=== PATIENT | female | born 1955 | race Caucasian/White ===

== ENCOUNTER 2024-10-29 22:24 | Emergency (ER) | payer OTHER ==
--- OUTSIDE RECORDS SUMMARY | 2024-10-29 22:34 | XMS REPORT | Continuity of Care Document ---
Author Name Unknown Address [address] [facility] [place] [address] [facility] Address [address] [facility] [place] [address] Care Team Providers Care Vault Clerk Name Role Phone NONE, NONE Primary Care Physician Unavailab LORRAINE Samuel Attending Clinician Unavailab JOELLEN Gonzalez Attending Clinician Unavailable JOELLEN SANCHEZ Attending Clinician Unavailable CORNELIA MIGUEL Attending Clinician Unavailable CORNELIA MIGUEL Attending Clinician Unavailable JULIETTE GARCIA Attending Clinician Unavaila JULIETTE Fonseca Attending Clinician Unavaila ELLEN Jackson Attending Clinician Unavailable ELLEN ROMERO Attending Clinician Unavailable FRANSISCO ANDUJAR Attending Clinician Unavailable LORRAINE CHARLES Attending Clinician Unavailable JOSLYN JULES Attending Clinician UnavailDR JO ANN Chun Attending Clinician UnavailBEVERLY Collins Attending Clinician Unavailable PETER VILLATORO Attending Clinician Unavailable DR BLANCO POWERS Attending Clinician Unavailab michael ANTONNOLA WHITEHEAD Attending Clinician Unavailab JOELLEN Gonzalez Admitting Clinician Unavailable CORNELIA MIGUEL Admitting Clinician Unavailable JULIETTE GARCIA Admitting Clinician UnavailELLEN Miguel Admitting Clinician Unavailable FRANSISCO ANDUJAR Admitting Clinician Unavailable ANGEL PARKER Admitting Clinician Unavailable DR JO ANN DE JESUS Admitting Clinician UnavailBEVERLY Collins Admitting Clinician Unavailable PETER VILLATORO Admitting Clinician Unavailable DR BLANCO POWERS Admitting Clinician Unavailab le TARAPASANOLA JAEGER Admitting Clinician Unavailab TIM March Admitting Clinician Unavailable ASPEN ULRICH Admitting Clinician Unavailable Payers Payer Name Policy Type Policy Number Effective Date Expirati on Date Source [id number] 2020 00:00:00 [id number] 1959 00:00:00 [id number] 1959 00:00:00 MEDICARE PART A AND B [id number] 2020 00:00:00 [id number] 1959 00:00:00 Problems Condition Name Condition Details Condition Category Status Onset Date Resolution Date Last Treatment Date Treating Clinician Comments Source I48.92 I48.92 Active 12/21/2022 [facility] Active 2022-03 00:00: 00 2023-01-17 13:39:00 [facility] SOB SOB Active 12/17/2022 [facility] Active 2022-03 00:00: 00 2022-12-17 13:10:00 [facility] ATRIAL FLUTTER ATRIAL FLUTTER Active 12/17/2022 [facility] Active 2022-03 0- 00:00: 00 2022-12-28 22:49:00 [facility] Hypertensi ve disorder Hypertensi ve disorder (Problem) Problem Active 11-06 00:00: 00 2021-11-06 19:15:[address] [facility] ([facility]) Pneumonia Pneumonia (Problem) Problem Active 08-14 00:00: 00 2019-08-15 05:31:[address] [facility] (LUF/LI V/SA) Acute right otitis media Acute right otitis media (Problem) Problem Active 03-10 00:00: 00 2019-03-10 00:33:[address] [facility] (LUF/LI V/SA) Acute pharyngiti s Acute pharyngiti s (Problem) Problem Active 03-10 00:00: 00 2019-03-10 00:33:[address] [facility] (LUF/LI V/SA) Biliary colic Biliary colic (Problem) Problem Active 09-07 00:00: 00 2017-09-07 14:18:[address] [facility] (LUF/LI V/SA) Lower urinary tract infectious disease Lower urinary tract infectious disease (Problem) Problem Active 09-07 00:00: 00 2017-09-07 14:38:[address] [facility] (LUF/LI V/SA) Pain in upper limb Pain in upper limb (Problem) Problem Active 2016-03 00:00: 00 2017-01-18 02:49:[address] [facility] (LUF/LI V/SA) Cellulitis of arm Cellulitis of arm (Problem) Problem Active 2016-03 00:00: 00 2017-01-18 02:49:[address] [facility] (LUF/LI V/SA) GALL BLADDER ATTACK (Problem) GALL BLADDER ATTACK (Problem) Problem Active 2017-02-11 11:37:[address] [facility] (LUF/LI V/SA) Asthma (disorder) Asthma (disorder) Active Problem 12/21/2022 [facility] Problem Active 2022-12-21 22:58:57 Monica Joseph UNSPECIFIE D ATRIAL FLUTTER UNSPECIFIE D ATRIAL FLUTTER Active [facility] Active 2022-12-28 22:49:00 Monica Joseph Allergies, Adverse Reactions, Alerts Allergy Name Allergy Type Status Severity Reaction(s) Onset Date Inactive Date Treating Clinician Comments Source penicill in penicill in Active Monica Joseph Social History Smoking Status Start Date Stop Date Source Tobacco smoking status Froilan Joseph Medications Ordered Medication Name Filled Medication Name Start Date Stop Date Current Medication? Ordering Clinician Indication Dosage Frequency Signature (SIG) Comments Components Source acetaminoph en 300 MG / codeine phosphate 30 MG Oral Tablet acetaminoph en 300 MG / codeine phosphate 30 MG Oral Tablet 09-08 10:52: 05 No pain 1 Q5.00H orally every 4 to 6 hours for pain as needed. (as needed for pain) [facility] (LUF/LI V/SA) methocarbam ol 750 MG Oral Tablet methocarbam ol 750 MG Oral Tablet 09-08 10:52: 04 No 750mg 3xD orally 3 times per day [facility] (LUF/LI V/SA) lidocaine 0.05 MG/MG Medicated Patch lidocaine 0.05 MG/MG Medicated Patch 09-08 10:52: 02 No 1 1xD topically daily (to the Affected Area ONCE A DAY) [facility] (LUF/LI V/SA) 1 ML morphine sulfate 2 MG/ML Prefilled Syringe 1 ML morphine sulfate 2 MG/ML Prefilled Syringe 09-08 00:00: 00 09-08 00:00 :00 No 2MG ONCE (FOR MODERATE TO SEVERE PAIN) [facility] (LUF/LI V/SA) ondansetron 4 MG Disintegrat ing Oral Tablet ondansetron 4 MG Disintegrat ing Oral Tablet 09-08 00:00: 00 09-08 00:00 :00 No 4MG ONCE (FOR NAUSEA AND VOMITING) [facility] (LUF/LI V/SA) diltiazem 30 mg oral tablet 2022-03 16:30: 00 Yes 60 mg = 2 tab, PO, Q8H, # 180 tab, 0 Refill(s), Pharmacy: [facility] #[id number], 160.02, cm, 12/17/22 17:02:00 CDT, Height, 92.4, kg, 12/17/22 17:02:00 CDT, Weight Monica Joseph metoprolol tartrate 50 mg oral tablet 2022-03 16:30: 00 Yes 50 mg = 1 tab, PO, Q12H, # 60 tab, 0 Refill(s), Pharmacy: [facility] #[id number], 160.02, cm, 12/17/22 17:02:00 CDT, Height, 92.4, kg, 12/17/22 17:02:00 CDT, Weight Monica Joseph apixaban 5 mg oral tablet 2022-03 0 16:30: 00 Yes 5 mg = 1 tab, PO, Q12H, For Atrial Fibrillati on, # 60 tab, 0 Refill(s), Pharmacy: [facility] #[id number], 160.02, cm, 12/17/22 17:02:00 CDT, Height, 92.4, kg, 12/17/22 17:02:00 CDT, Weight Monica Joseph lisinopril 20 MG Oral Tablet lisinopril 20 MG Oral Tablet 07-28 19:02: 06 No 20mg 1xD orally daily [facility] (LUF/LI V/SA) clindamycin 300 MG Oral Capsule clindamycin 300 MG Oral Capsule 07-28 18:42: 36 No 300mg 4xD [facility] albuterol sulfate HFA 90 mcg/actuati on aerosol inhaler albuterol sulfate HFA 90 mcg/actuati on aerosol inhaler 04-11 14:55: 01 No Wheezing 1 Q5.00H inhaled every 4 to 6 hours for Dyspnea and Wheezing as needed. (as needed for shortness of breath or wheezing) [facility] (LUF/LI V/SA) prednisone 50 MG Oral Tablet prednisone 50 MG Oral Tablet 04-11 14:53: 52 No 50mg 1xD orally daily [facility] (LUF/LI V/SA) doxycycline hyclate 100 mg capsule doxycycline hyclate 100 mg capsule 04-11 14:53: 07 No 100mg 2xD orally 2 times per day [facility] (LUF/LI V/SA) azithromyci n 500 MG Oral Tablet azithromyci n 500 MG Oral Tablet 03-10 00:36: 53 No 500mg 1xD orally daily (Take 2 tablets today then one daily for 4 more days.) [facility] ([facility]) dextrometho rphan hydrobromid e 3 MG/ML / promethazin e hydrochlori de 1.25 MG/ML Oral Solution dextrometho rphan hydrobromid e 3 MG/ML / promethazin e hydrochlori de 1.25 MG/ML Oral Solution 03-10 00:36: 53 No 5mL Q5.00H orally every 4 to 6 hours as needed. (as needed for cough) [facility] (LUF/LI V/SA) Vital Signs Vital Name Observation Time Observation Value Comments S ource Height 2024-09-08 08:49:00 160.02 CM Weight 2024-09-08 08:49:00 89.6 KG Weight 2023 11:20:00 96.56 KG Height 2023-05-26 16:09:00 160.02 CM Weight 2023-05-26 16:09:00 98 KG Height 2023-01-21 16:04:00 160.02 CM Height 2022-07-28 16:28:00 165.1 CM Weight 2022-07-28 16:28:00 105 KG Height 2022-05-12 09:37:00 160.02 CM Weight 2022-05-12 09:37:00 90 KG Height 2022-04-11 13:56:00 160.02 CM Weight 2022-04-11 13:56:00 93.6 KG Height 2021-12-10 01:45:00 160.02 CM Weight 2021-12-10 01:45:00 81.64 KG Height 2021-11-06 16:33:00 160.02 CM Weight 2021-11-06 16:33:00 93.8 KG Height 2020-12-13 03:27:00 160.02 CM Weight 2020-12-13 03:27:00 90.9 KG Weight 2020-10-25 22:07:00 100 KG Height 2019-08-16 16:08:00 167.64 CM Weight 2019-08-16 16:08:00 93.44 KG Height 2019-08-14 22:13:00 160.02 CM Weight 2019-08-14 22:13:00 88.18 KG Height 2019-03-09 23:20:00 160.02 CM Weight 2019-03-09 23:20:00 87.7 KG Pulse Rate 2024-09-08 10:31:00 58 /min [facility] (LUF/LINA/SA) O2% [facility]ldC Oximetry 2024-09-08 10:31:00 93 % [facility] (LUF/LINA/SA) BP Systolic 2024-09-08 10:31:00 180 mm[Hg] [facility] (LUF/LINA/SA) BP Diastolic 2024-09-08 10:31:00 101 mm[Hg] [facility] (LUF/LINA/SA) Respiratory Rate 2024-09-08 09:38:00 18 /min [facility] (LUF/LINA/SA) Body Temperature 2024-09-08 08:49:00 97.9 [degF] [facility] (LUF/LINA/SA) Height 2024-09-08 08:49:00 63 [in_i] [facility] (LUF/LINA/SA) Weight 2024-09-08 08:49:00 89.6 kg [facility] (LUF/LINA/SA) BMI (Body Mass Index) 2024-09-08 08:49:00 34.9 kg/m2 [facility] (LUF/LINA/SA) Pulse Rate 2023 12:31:00 54 /min [facility] (LUF/LINA/SA) O2% BldC Oximetry 2023 12:31:00 96 % [facility] (LUF/LINA/SA) BP Systolic 2023 12:31:00 138 mm[Hg] [facility] (LUF/LINA/SA) BP Diastolic 2023 12:31:00 92 mm[Hg] [facility] (LUF/LINA/SA) Body Temperature 2023 11:20:00 98.3 [degF] [facility] (LUF/LINA/SA) Heart Rate 2023 11:20:00 49 /min [facility] (LUF/LINA/SA) Respiratory Rate 2023 11:20:00 16 /min [facility] (LUF/LINA/SA) Weight 2023 11:20:00 96.56 kg [facility] (LUF/LINA/SA) Body Temperature 2023-05-26 16:09:00 98.6 [degF] [facility] (LUF/LINA/SA) Heart Rate 2023-05-26 16:09:00 62 /min [facility] (LUF/LINA/SA) Pulse Rate 2023-05-26 16:09:00 62 /min [facility] (LUF/LINA/SA) Respiratory Rate 2023-05-26 16:09:00 18 /min [facility] (LUF/LINA/SA) O2% BldC Oximetry 2023-05-26 16:09:00 95 % [facility] (LUF/LINA/SA) BP Systolic 2023-05-26 16:09:00 177 mm[Hg] [facility] (LUF/LINA/SA) BP Diastolic 2023-05-26 16:09:00 97 mm[Hg] [facility] (LUF/LINA/SA) Height 2023-05-26 16:09:00 63 [in_i] [facility] (LUF/LINA/SA) Weight 2023-05-26 16:09:00 98 kg [facility] (LUF/LINA/SA) BMI (Body Mass Index) 2023-05-26 16:09:00 38.2 kg/m2 [facility] (LUF/LINA/SA) Heart Rate 2023-01-21 19:16:00 106 /min [facility] (LUF/LINA/SA) Pulse Rate 2023-01-21 19:16:00 117 /min [facility] (LUF/LINA/SA) Respiratory Rate 2023-01-21 19:16:00 14 /min [facility] (LUF/LINA/SA) O2% BldC Oximetry 2023-01-21 19:16:00 97 % [facility] (LUF/LINA/SA) BP Systolic 2023-01-21 19:16:00 142 mm[Hg] [facility] (LUF/LINA/SA) BP Diastolic 2023-01-21 19:16:00 108 mm[Hg] [facility] (LUF/LINA/SA) Body Temperature 2023-01-21 16:04:00 98.2 [degF] [facility] (LUF/LINA/SA) Height 2023-01-21 16:04:00 63 [in_i] [facility] (LUF/LNIA/SA) Systolic (mm Hg) 2022-12-19 17:30:00 [facility] Diastolic (mm Hg) 2022-12-19 17:30:00 [facility] Temperature Oral (F) 2022-12-19 16:26:00 97.9 F [facility] Height 2022-12-17 22:02:00 5 [ft_i] [facility] BMI Calculated 2022-12-17 22:02:00 M [facility] Weight 2022-12-17 22:02:00 [facility] Heart Rate 2022-12-17 21:34:00 [facility] Weight 2022-12-17 17:42:00 [facility] Heart Rate 2022-07-28 19:01:00 98 /min [facility] (LUF/LINA/SA) Pulse Rate 2022-07-28 19:01:00 100 /min [facility] (LUF/LINA/SA) Respiratory Rate 2022-07-28 19:01:00 18 /min [facility] (LUF/LINA/SA) O2% BldC Oximetry 2022-07-28 19:01:00 96 % [facility] (LUF/LINA/SA) BP Systolic 2022-07-28 19:01:00 147 mm[Hg] [facility] (LUF/LINA/SA) BP Diastolic 2022-07-28 19:01:00 98 mm[Hg] [facility] (LUF/LINA/SA) Body Temperature 2022-07-28 16:28:00 101.7 [degF] [facility] (LUF/LINA/SA) Height 2022-07-28 16:28:00 65 [in_i] [facility] (LUF/LINA/SA) Weight 2022-07-28 16:28:00 105 kg [facility] (LUF/LINA/SA) BMI (Body Mass Index) 2022-07-28 16:28:00 38.5 kg/m2 [facility] (LUF/LINA/SA) Pulse Rate 2022-05-12 13:12:00 110 /min [facility] (LUF/LINA/SA) O2% BldC Oximetry 2022-05-12 13:12:00 97 % [facility] (LUF/LINA/SA) Body Temperature 2022-05-12 09:37:00 98.5 [degF] [facility] (LUF/LINA/SA) Respiratory Rate 2022-05-12 09:37:00 20 /min [facility] (LUF/LINA/SA) BP Systolic 2022-05-12 09:37:00 180 mm[Hg] [facility] (LUF/LINA/SA) BP Diastolic 2022-05-12 09:37:00 82 mm[Hg] [facility] (LUF/LINA/SA) Height 2022-05-12 09:37:00 63 [in_i] [facility] (LUF/LINA/SA) Weight 2022-05-12 09:37:00 90 kg [facility] (LUF/LINA/SA) BMI (Body Mass Index) 2022-05-12 09:37:00 35.1 kg/m2 [facility] (LUF/LINA/SA) Heart Rate 2022-04-11 17:00:00 99 /min [facility] (LUF/LINA/SA) Pulse Rate 2022-04-11 17:00:00 99 /min [facility] (LUF/LINA/SA) O2% BldC Oximetry 2022-04-11 17:00:00 99 % [facility] (LUF/LINA/SA) BP Systolic 2022-04-11 17:00:00 171 mm[Hg] [facility] (LUF/LINA/SA) BP Diastolic 2022-04-11 17:00:00 103 mm[Hg] [facility] (LUF/LINA/SA) Respiratory Rate 2022-04-11 16:59:00 20 /min [facility] (LUF/LINA/SA) Height 2022-04-11 13:56:00 63 [in_i] [facility] (LUF/LINA/SA) Weight 2022-04-11 13:56:00 93.6 kg [facility] (LUF/LINA/SA) BMI (Body Mass Index) 2022-04-11 13:56:00 36.5 kg/m2 [facility] (LUF/LINA/SA) Body Temperature 2022-04-11 13:51:00 97.9 [degF] [facility] (LUF/LINA/SA) Body Temperature 2021-12-10 01:45:00 97.8 [degF] [facility] (LUF/LINA/SA) Pulse Rate 2021-12-10 01:45:00 91 /min [facility] (LUF/LINA/SA) Respiratory Rate 2021-12-10 01:45:00 18 /min [facility] (LUF/LINA/SA) O2% BldC Oximetry 2021-12-10 01:45:00 99 % [facility] (LUF/LINA/SA) BP Systolic 2021-12-10 01:45:00 217 mm[Hg] [facility] (LUF/LINA/SA) BP Diastolic 2021-12-10 01:45:00 105 mm[Hg] [facility] (LUF/LINA/SA) Height 2021-12-10 01:45:00 63 [in_i] [facility] (LUF/LINA/SA) Weight 2021-12-10 01:45:00 180 [lb_av] [facility] (LUF/LINA/SA) BMI (Body Mass Index) 2021-12-10 01:45:00 31.8 kg/m2 [facility] (LUF/LINA/SA) Pulse Rate 2021-11-06 18:10:00 79 /min [facility] (LUF/LINA/SA) Respiratory Rate 2021-11-06 18:10:00 17 /min [facility] (LUF/LINA/SA) O2% BldC Oximetry 2021-11-06 18:10:00 99 % [facility] (LUF/LINA/SA) BP Systolic 2021-11-06 18:10:00 179 mm[Hg] [facility] (LUF/ILNA/SA) BP Diastolic 2021-11-06 18:10:00 93 mm[Hg] [facility] (LUF/LINA/SA) Body Temperature 2021-11-06 16:33:00 97.7 [degF] [facility] (LUF/LINA/SA) Height 2021-11-06 16:33:00 63 [in_i] [facility] (LUF/LINA/SA) Weight 2021-11-06 16:33:00 93.8 kg [facility] (LUF/LINA/SA) BMI (Body Mass Index) 2021-11-06 16:33:00 36.6 kg/m2 [facility] (LUF/LINA/SA) Heart Rate 2020-12-13 05:48:00 89 /min [facility] (LUF/LINA/SA) Pulse Rate 2020-12-13 05:48:00 89 /min [facility] (LUF/LINA/SA) Respiratory Rate 2020-12-13 05:48:00 23 /min [facility] (LUF/LINA/SA) O2% BldC Oximetry 2020-12-13 05:48:00 98 % [facility] (LUF/LINA/SA) BP Systolic 2020-12-13 05:48:00 223 mm[Hg] [facility] (LUF/LINA/SA) BP Diastolic 2020-12-13 05:48:00 116 mm[Hg] [facility] (LUF/LINA/SA) Body Temperature 2020-12-13 03:27:00 98.2 [degF] [facility] (LUF/LINA/SA) Height 2020-12-13 03:27:00 63 [in_i] [facility] (LUF/LINA/SA) Weight 2020-12-13 03:27:00 90.9 kg [facility] (LUF/LINA/SA) BMI (Body Mass Index) 2020-12-13 03:27:00 35.5 kg/m2 [facility] (LUF/LINA/SA) Body Temperature 2020-10-26 00:34:00 100.5 [degF] [facility] (LUF/LINA/SA) Pulse Rate 2020-10-26 00:33:00 106 /min [facility] (LUF/LINA/SA) O2% BldC Oximetry 2020-10-26 00:33:00 98 % [facility] (LUF/LINA/SA) BP Systolic 2020-10-26 00:33:00 160 mm[Hg] [facility] (LUF/LINA/SA) BP Diastolic 2020-10-26 00:33:00 87 mm[Hg] [facility] (LUF/LINA/SA) Respiratory Rate 2020-10-25 22:16:00 20 /min [facility] (LUF/LINA/SA) Weight 2020-10-25 22:07:00 100 kg [facility] (LUF/LINA/SA) Body Temperature 2019-08-16 16:08:00 98.6 [degF] [facility] (LUF/LINA/SA) Pulse Rate 2019-08-16 16:08:00 94 /min [facility] (LUF/LINA/SA) Respiratory Rate 2019-08-16 16:08:00 19 /min [facility] (LUF/LINA/SA) O2% BldC Oximetry 2019-08-16 16:08:00 97 % [facility] (LUF/LINA/SA) BP Systolic 2019-08-16 16:08:00 140 mm[Hg] [facility] (LUF/LINA/SA) BP Diastolic 2019-08-16 16:08:00 96 mm[Hg] [facility] (LUF/LINA/SA) Height 2019-08-16 16:08:00 66 [in_i] [facility] (LUF/LINA/SA) Weight 2019-08-16 16:08:00 206 [lb_av] [facility] (LUF/LINA/SA) BMI (Body Mass Index) 2019-08-16 16:08:00 33.5 kg/m2 [facility] (LUF/LINA/SA) Heart Rate 2019-08-15 01:01:00 122 /min [facility] (LUF/LINA/SA) Respiratory Rate 2019-08-15 01:01:00 15 /min [facility] (LUF/LINA/SA) BP Systolic 2019-08-15 01:01:00 119 mm[Hg] [facility] (LUF/LINA/SA) BP Diastolic 2019-08-15 01:01:00 69 mm[Hg] [facility] (LUF/LINA/SA) Body Temperature 2019-08-14 22:13:00 99.4 [degF] [facility] (LUF/LINA/SA) Pulse Rate 2019-08-14 22:13:00 125 /min [facility] t [facility] (LUF/LINA/SA) O2% BldC Oximetry 2019-08-14 22:13:00 93 % [facility] (LUF/LINA/SA) Height 2019-08-14 22:13:00 63 [in_i] [facility] t [facility] (LUF/LINA/SA) Weight 2019-08-14 22:13:00 88.18 kg [facility] (LUF/LINA/SA) BMI (Body Mass Index) 2019-08-14 22:13:00 34.4 kg/m2 [facility] (LUF/LINA/SA) Body Temperature 2019-04-21 04:27:00 99 [degF] [facility] (LUF/LINA/SA) Pulse Rate 2019-04-21 04:27:00 98 /min [facility] t [facility] (LUF/LINA/SA) Respiratory Rate 2019-04-21 04:27:00 18 /min [facility] (LUF/LINA/SA) O2% BldC Oximetry 2019-04-21 04:27:00 98 % [facility] (LUF/LINA/SA) BP Systolic 2019-04-21 04:27:00 146 mm[Hg] [facility] (LUF/LINA/SA) BP Diastolic 2019-04-21 04:27:00 80 mm[Hg] [facility] (LUF/LINA/SA) Height 2019-04-21 01:04:00 63 [in_i] [facility] (LUF/LINA/SA) Weight 2019-04-21 01:04:00 89.1 kg [facility] (LUF/LINA/SA) BMI (Body Mass Index) 2019-04-21 01:04:00 34.8 kg/m2 [facility] (LUF/LINA/SA) Body Temperature 2018-07-10 11:23:00 98.8 F [facility] (LUF/LINA/SA) BP Systolic 2018-07-10 11:19:00 182 mm[Hg] [facility] (LUF/LINA/SA) BP Diastolic 2018-07-10 11:19:00 97 mm[Hg] [facility] (LUF/LINA/SA) O2% BldC Oximetry 2018-07-10 07:58:00 96 % [facility] (LUF/LINA/SA) Weight Measured 2018-07-10 05:44:00 188.71 lbs [facility] (LUF/LINA/SA) Pulse Rate 2018-07-10 00:39:00 102 /min [facility] (LUF/LINA/SA) Respiratory Rate 2018-07-10 00:36:00 18 /min [facility] (LUF/LINA/SA) Height 2018-07-10 00:31:00 63 in [facility] (LUF/LINA/SA) BMI (Body Mass Index) 2018-07-10 00:31:00 33.4 kg/m2 [facility] (LUF/LINA/SA) Body Temperature 2018-07-06 12:34:00 98 F [facility] (LUF/LINA/SA) Pulse Rate 2018-07-06 12:34:00 95 /min [facility] (LUF/LINA/SA) Respiratory Rate 2018-07-06 12:34:00 18 /min [facility] (F/LINA/SA) O2% BldC Oximetry 2018-07-06 12:34:00 98 % [facility] (LUF/LINA/SA) BP Systolic 2018-07-06 12:34:00 148 mm[Hg] [facility] (LUF/LINA/SA) BP Diastolic 2018-07-06 12:34:00 78 mm[Hg] [facility] (LUF/LINA/SA) Weight Measured 2018-07-06 00:24:00 200.17 lbs [facility] (LUF/LINA/SA) Height 2018-07-03 20:06:00 87 in [facility] (LUF/LINA/SA) BMI (Body Mass Index) 2018-07-03 20:06:00 18.7 kg/m2 [facility] (LUF/LINA/SA) Respiratory Rate 2017-09-07 14:20:00 16 /min [facility] (LUF/LINA/SA) O2% BldC Oximetry 2017-09-07 14:20:00 98 % [facility] (LUF/LINA/SA) BP Systolic 2017-09-07 14:20:00 132 mm[Hg] [facility] (LUF/LINA/SA) BP Diastolic 2017-09-07 14:20:00 78 mm[Hg] [facility] (LUF/LINA/SA) Body Temperature 2017-09-07 13:00:00 98.8 F [facility] (LUF/LINA/SA) Height 2017-09-07 13:00:00 67 in [facility] (F/LINA/SA) Weight Measured 2017-09-07 13:00:00 178.35 lbs [facility] (LUF/LINA/SA) BMI (Body Mass Index) 2017-09-07 13:00:00 27.9 [facility] (LUF/LINA/SA) Body Temperature 2017-08-12 00:06:00 98.3 F [facility] (LUF/LINA/SA) Respiratory Rate 2017-08-12 00:06:00 20 /min [facility] (F/LINA/SA) O2% BldC Oximetry 2017-08-12 00:06:00 98 % [facility] (LUF/LINA/SA) BP Systolic 2017-08-12 00:06:00 160 mm[Hg] [facility] (LUF/LINA/SA) BP Diastolic 2017-08-12 00:06:00 93 mm[Hg] [facility] (LUF/LINA/SA) Height 2017-08-12 00:06:00 63 in [facility] S t [facility] (LUF/LINA/SA) Weight Measured 2017-08-12 00:06:00 178 lbs [facility] (LUF/LINA/SA) BMI (Body Mass Index) 2017-08-12 00:06:00 31.5 [facility] (LUF/LINA/SA) Body Temperature 2017-02-11 05:42:00 97.7 F [facility] (LUF/LINA/SA) Respiratory Rate 2017-02-11 05:42:00 20 /min [facility] (LUF/LINA/SA) O2% BldC Oximetry 2017-02-11 05:42:00 99 % [facility] (LUF/LINA/SA) BP Systolic 2017-02-11 05:42:00 176 mm[Hg] [facility] (LUF/LINA/SA) BP Diastolic 2017-02-11 05:42:00 104 mm[Hg] [facility] (LUF/LINA/SA) Height 2017-02-11 05:42:00 63 in [facility] S [facility] (LUF/LINA/SA) Weight Measured 2017-02-11 05:42:00 159.98 lbs [facility] (LUF/LINA/SA) BMI (Body Mass Index) 2017-02-11 05:42:00 28.3 [facility] (LUF/LNIA/SA) Body Temperature 2017-01-18 01:17:00 97.9 F [facility] (LUF/LINA/SA) Respiratory Rate 2017-01-18 01:17:00 16 /min [facility] (LUF/LINA/SA) O2% BldC Oximetry 2017-01-18 01:17:00 100 % [facility] (LUF/LINA/SA) BP Systolic 2017-01-18 01:17:00 153 mm[Hg] [facility] (LUF/LINA/SA) BP Diastolic 2017-01-18 01:17:00 90 mm[Hg] [facility] (LUF/LINA/SA) Weight Measured 2017-01-18 01:17:00 171.74 lbs [facility] (LUF/LINA/SA) Procedures Procedure Date / Time Performed Performing Clinician Source ROBOTIC LAP CHOLEcystectomy with intraoperative cholangregram 2018-07-05 10:41:00 [facility] (LUF/LINA/SA) Encounters Start Date/Time End Date/Time Encounter Type Admission Type Attending [facility] Care Facility Care Department Encounter ID Source 2023-01-17 13:41:27 Outpatient LORRAINE CHARLES [facility] CAR [id number] [facility] 2024-09-08 08:30:00 2024-09-08 10:55:00 NDSPLC FX DIST PHAL RT THMB INT ARABELLA 1 JOELLEN SANCHEZ ANDREW [facility], [facility] [place] [address] [facility] [id number] [facility] (LUF/LI V/SA) 2024-09-08 00:00:00 2024-09-08 00:00:00 Inpatient [facility], [facility] [place] [address] [facility] [id number] [facility] (LUF/LI V/SA) 2024-09-08 00:00:00 2024-09-08 00:00:00 Inpatient [facility], [facility] [place] [address] [facility] [id number] [facility] (LUF/LI V/SA) 2024-01-12 13:00:00 2024-01-12 13:00:00 Outpatient 3 CORNELIA MIGUEL BRITTNI STL TIC [id number] [facility] (LUF/LI V/SA) 2023 11:03:00 2023 12:58:00 CONTUSION RIGHT LOWER LEG INITIAL 1 JULIETTE GARCIA JULIETTE [facility] [id number] [facility] (LUF/LI V/SA) 2023 00:00:00 2023 00:00:00 Inpatient [facility], [address] [place] [address] [facility] [id number] [facility] (LUF/LI V/SA) 2023 00:00:00 2023 00:00:00 Inpatient [facility] [address] [address] [facility] [id number] [facility] (LUF/LI V/SA) 2023-05-26 15:47:00 2023-05-26 20:05:00 ESSENTIAL PRIMARY HYPERTENSI ON 1 ELLEN ROMERO MARTIN [facility], [address] [place] [address] [facility] [id number] [facility] (LUF/LI V/SA) 2023-05-26 00:00:00 2023-05-26 00:00:00 Inpatient [facility] [address] [address] [facility] [id number] [facility] (LUF/LI V/SA) 2023-05-26 00:00:00 2023-05-26 00:00:00 Inpatient [facility] [address] [address] [facility] [id number] [facility] (LUF/LI V/SA) 2023-01-21 15:30:00 2023-01-21 19:46:00 UNSPECIFIE D ATRIAL FLUTTER 1 FRANSISCO ANDUJAR [facility] EMD [id number] [facility] 2023-01-21 00:00:00 2023-01-21 00:00:00 Inpatient [facility], [address] [place] [address] [facility] [id number] [facility]/SA) 2023-01-21 00:00:00 2023-01-21 00:00:00 Inpatient [facility] [address] [address] [facility] [id number] [facility] (LUF/LI V/SA) 2023-01-13 14:30:00 2023-01-13 14:30:00 Outpatient LORRAINE CHARLES ED [facility] [id number] [facility] 2022-12-17 16:59:00 2022-12-19 13:07:00 Inpatient E JOSLYN JULES [facility] [id number] [address] [place] [address] 2022-07-28 16:20:00 2022-07-28 19:13:00 CELLULITIS OF LEFT LOWER LIMB 1 JO ANN DE JESUS [facility] EMD [id number] [facility] (LUF/LI V/SA) 2022-07-28 00:00:00 2022-07-28 00:00:00 Inpatient [facility] OF [address] [address] [facility] [id number] [facility]/SA) 2022-07-28 00:00:00 2022-07-28 00:00:00 Inpatient [facility] [address] [address] [facility] [id number] [facility] (LUF/LI V/SA) 2022-05-12 09:36:00 2022-05-12 13:43:00 ACUTE UP RESPIRATOR Y INFECTION UNS 1 BEVERLY CABRERA [facility] [id number] [facility] (LUF/LI V/SA) 2022-05-12 00:00:00 2022-05-12 00:00:00 Inpatient [facility], [address] [place] [address] [facility] [id number] [facility] (LUF/LI V/SA) 2022-05-12 00:00:00 2022-05-12 00:00:00 Inpatient [facility], [address] [place] [address] [facility] [id number] [facility] (LUF/LI V/SA) 2022-04-11 13:48:00 2022-04-11 17:05:00 COPD WITH ACUTE EXACERBATI ON 1 BEVERLY CABRERA [facility], [address] [place] [address] [facility] [id number] [facility] (LUF/LI V/SA) 2022-04-11 00:00:00 2022-04-11 00:00:00 Inpatient [facility], [address] [place] [address] [facility] [id number] [facility] (LUF/LI V/SA) 2022-04-11 00:00:00 2022-04-11 00:00:00 Inpatient [facility] OF [address] [address] [facility] [id number] [facility] (LUF/LI V/SA) 2021-12-10 00:13:00 2021-12-10 03:21:00 ESSENTIAL PRIMARY HYPERTENSI ON 1 JO ANN DE JESUS [facility], [address] [place] [address] [facility] [id number] [facility] (LUF/LI V/SA) 2021-12-10 00:00:00 2021-12-10 00:00:00 Inpatient [facility] [address] [address] [facility] [id number] [facility] (LUF/LI V/SA) 2021-12-10 00:00:00 2021-12-10 00:00:00 Inpatient [facility], [address] [place] [address] [facility] [id number] [facility] (LUF/LI V/SA) 2021-11-06 16:25:00 2021-11-06 19:30:00 ESSENTIAL PRIMARY HYPERTENSI ON 1 BEVERLY CABRERA [facility] EMD [id number] [facility] (LUF/LI V/SA) 2021-11-06 00:00:00 2021-11-06 00:00:00 Inpatient [facility] [address] [address] [facility] [id number] [facility] (LUF/LI V/SA) 2021-11-06 00:00:00 2021-11-06 00:00:00 Inpatient [facility] [address] [address] [facility] [id number] [facility] (LUF/LI V/SA) 2020-12-13 02:36:00 2020-12-13 06:30:00 HYPERTENSI VE URGENCY 1 PETER VILLATORO [facility] [id number] [facility] (LUF/LI V/SA) 2020-12-13 00:00:00 2020-12-13 00:00:00 Inpatient [facility] OF [address] [address] [facility] [id number] [facility] (LUF/LI V/SA) 2020-12-13 00:00:00 2020-12-13 00:00:00 Inpatient [facility] [id number] [place] [address] [id number] [facility] (LUF/LI V/SA) 2020-12-12 20:32:00 2020-12-12 21:57:00 SHORTNESS OF BREATH [address] [address] [facility] [id number] [facility] (LUF/LI V/SA) 2020-12-12 00:00:00 2020-12-12 00:00:00 Inpatient [facility] OF [address] [address] [facility] [id number] [facility] (LUF/LI V/SA) 2020-12-12 00:00:00 2020-12-12 00:00:00 Inpatient [facility] OF [address] [address] [facility] [id number] [facility] (LUF/LI V/SA) 2020-10-25 21:53:00 2020-10-26 01:32:00 DRUG-INDUC HEADACHE NEC NOT INTRACFRANSISCO MADRIGAL [facility], [address] [place] [address] [facility] [id number] [facility] (LUF/LI V/SA) 2020-10-25 00:00:00 2020-10-25 00:00:00 Inpatient [facility], [address] [place] [address] [facility] [id number] [facility] (LUF/LI V/SA) 2020-10-25 00:00:00 2020-10-25 00:00:00 Inpatient [facility], [address] [place] [address] [facility] [id number] [facility] (LUF/LI V/SA) 2019-08-16 15:54:00 2019-08-16 16:32:00 COVID-19 [facility], [address] [place] [address] [facility] [id number] [facility] (LUF/LI V/SA) 2019-08-16 00:28:00 2019-08-16 00:45:00 PROC&TX NOT CARRIED OUT PT LEAVE [facility], [address] [place] [address], [place] [address] [facility] [id number] [facility] (LUF/LI V/SA) 2019-08-14 22:06:00 2019-08-15 02:40:00 COVID-19 PETER ALVARES [facility], [address] [place] [address] [facility] [id number] [facility] (LUF/LI V/SA) 2019-08-14 15:48:00 2019-08-14 15:48:00 Emergency 1 STLML EMD [id number] [facility] (LUF/LI V/SA) 2019-04-21 00:57:00 2019-04-21 04:30:00 UNS ASTHMA W/ACUTE EXACERBATI ON 1 BLANCO POWERS [facility], [address] [place] [address] [facility] [id number] [facility] (LUF/LI V/SA) 2019-03-09 23:14:00 2019-03-09 23:14:00 Emergency 1 STLML EMD [id number] [facility] (LUF/LI V/SA) 2018-07-10 04:34:00 2018-07-10 16:45:00 PNEUMONIA UNSPECIFIE D ORGANISM E NOLA DUNCAN [facility], [address] [place] [address] [facility] [id number] [facility] (LUF/LI V/SA) 2018-07-03 22:45:00 2018-07-06 12:45:00 Inpatient E DIETER VARGAS [facility], [address] [place] [address] [facility] [id number] [facility] (LUF/LI V/SA) 2017-09-07 12:48:00 2017-09-07 14:20:00 UTI SITE NOT SPECIFIED ASPEN RUBY [facility], [address] [place] [address] [facility] [id number] [facility] (LUF/LI V/SA) 2017-08-11 23:54:00 2017-08-12 03:00:00 CALC BD NO CHOLANG/CH OLCYST NO OBST E PETER VILLATORO [facility], [address] [place] [address] [facility] [id number] [facility] (LUF/LI V/SA) 2017-02-11 05:32:00 2017-02-11 11:50:00 OTHER SPEC DISEASES GALLBLADDE R ASPEN RUBY [facility], [address] [place] [address] [facility] [id number] [facility] (LUF/LI V/SA) 2017-01-18 01:04:00 2017-01-18 03:15:00 CELLULITIS OF RIGHT UPPER LIMB BLANCO POWERS [facility], [address] [place] [address] [facility] [id number] [facility] (F/LI V/SA) Results Test Description Test Time Test Comments Results Resul t Comments Source CT HEAD W/O CONTRAST 2024-09-08 10:33:56 [facility]/LINA/SA)Name: YE ARNOLD : 1955 Sex: F STUDY: CT OF THE BRAIN WITHOUT IV CONTRASTHISTORY: Pain.COMPARISON(S): None.TECHNIQUE: CT images were obtained from the skull base to the vertex without theadministration of intravenous contrast. The data set was reconstructed inaxial, coronal, and sagittal intervals.This exam was performed according to the our departmental dose-optimizationprogra m which includes automated exposure control, adjustment of the mA and/orkV according to patient size and/or use of iterative reconstruction techniques.FINDINGS:Per iventricular hypoattenuation.. Lacunar infarct of the left basal ganglia.There is no acute intracranial hemorrhage, midline shift, extra-axial fluidcollection or ventricular dilation. No definitive evidence of loss of nicolas-whitedifferentiati on. No sulcal effacement is seen. The basal cisterns are patent.The paranasal sinuses are clear. Effusion of the bilateral mastoid air cells.The calvarium is intact. The orbits are unremarkable.IMPRESSION :1. No CT evidence of acute intracranial process identified.2. Chronic microvascular disease.3. Prior lacunar infarct of the left basal ganglia.This final report was electronically signed by Maria Ines Morales MD :31 AMDictated By: Cayetano MORALESte: 09/08/2024 10:[address] CERVICAL SPINE W/O CONTRAST 2024-09-08 10:30:41 [facility] (LUF/LINA/SA)Name: YE ARNOLD : 1955 Sex: F STUDY: CT OF THE CERVICAL SPINE WITHOUT CONTRASTHISTORY: Pain.COMPARISON(S): None.TECHNIQUE: Images of the cervical spine were obtained without theadministration of intravenous contrast. Sagittal and coronal reformatted imageswere also obtained.This exam was performed according to the our departmental dose-optimizationprogra m which includes automated exposure control, adjustment of the mA and/orkV according to patient size and/or use of iterative reconstruction techniques.FINDINGS:Michael tebral body heights are maintained. The alignment is anatomic.Multilevel degenerative disease with osteophytosis, facet arthropathy, and lossof intervertebral disc space height.The visualized portion of the cervicomedullary junction is unremarkable. Thespinal cord is normal in caliber.The paravertebral soft tissues are unremarkable.IMPRESSION :1. No evidence of acute osseous abnormality identified.2. Multilevel cervical spondylosis.This final report was electronically signed by Maria Ines Morales MD :28 AMDictated By: Cayetano MORALESte: 09/08/2024 10:[address] CHEST W/O CONTRAST 2024-09-08 10:27:56 SWAPNIL [facility] ([facility]/)Name: YE ARNOLD : 1955 Sex: F STUDY: CT CHEST WITHOUT IV CONTRASTHISTORY: Fall. Chest pain to the right sideCOMPARISON(S): None.TECHNIQUE: Contiguous axial images are acquired through the chest. Nointravenous contrast. The data set was reconstructed in an axial, coronal, andsagittal intervals.This exam was performed according to the our departmental dose-optimizationprogra m which includes automated exposure control, adjustment of the mA and/orkV according to patient size and/or use of iterative reconstruction techniques.FINDINGS: Suboptimal evaluation of vasculature, lymphatics, and solid organs.The included thyroid gland is not enlarged.No evidence of supraclavicular, mediastinal, axillary, or perihilar pathologicallymphadenop athy. Coronary artery calcifications.. No pathological pericardialeffusion. Left anterior upper chest wall subcutaneous swelling. Aberrant rightsubclavian artery.No suspicious pulmonary nodule or dominant pulmonary mass. No pleural effusionor pneumothorax. The trachea and main bronchi are patent.The imaged portion of the upper abdomen is unremarkable.No evidence of an aggressive sclerotic or lytic osseous lesion.IMPRESSION:1. No evidence of acute intrathoracic process identified.2. Mild left and upper chest wall edema.This final report was electronically signed by Maria Ines Morales MD 0:25 AMDictated By: MARIA INES MORALESDate: 09/08/2024 10:25 STL XR FINGER MINIMUM 2 VIEWS 2024-09-08 10:24:25 [facility]Name: YE ARNOLD : 1955 Sex: F STUDY: 3 VIEWS OF THE RIGHT THUMB.HISTORY: Pain.COMPARISON(S): None.FINDINGS:Intra-art icular nondisplaced fracture of the first distal phalanx. No evidenceof dislocation.. Adjacent soft tissue swelling.. No radiopaque foreign body.IMPRESSION:Nondisp laced intra-articular fracture of the first distal phalanxThis final report was electronically signed by Maria Ines Morales MD 0:22 AMDictated By: MARIA INES MORALESDate: 09/08/2024 10:22 STLML STLMLUS VEINS BILAT LEGS [id number] 12:32:18 [facility]Name: YE ARNOLD : 1955 Sex: FEXAM: US VEINS BILAT LEGS DopplerORDER DATE: 2023 11:46 AMORDERING PROVIDER: JULIETTE GARCIA .INDICATION: [id number]: Deep venous thrombosis of lower extremity (disorder)COMPARISON: No relevant prior exams available for comparison.TECHNIQUE: Real-time grayscale, color Doppler, and spectral Doppler sonographicexamination of the greater saphenous and deep veins of the bilateral lowerextremities. Compression maneuver utilized.FINDINGS: Interrogated portions of the bilateral common femoral, femoral,greater saphenous, and popliteal veins demonstrate normal caliber and patency.No abnormalintraluminal filling defect. Normal response to compression.IMPRESSION:No evidence of DVT in eitherlower extremity.END OF REPORTThis final report was electronically signed by Dr Loreta Howard MD 2:27 PMDictated By: LORETA HOWARDDate: 2023 12:27 STLMLCT HEAD W/O [id number] 18:13:25 SWAPNIL [facility] ([facility]/)Name: YE ARNOLD : 1955 Sex: FProcedure: CT HEAD W/O CONTRASTOrder date: 05/26/2023 4:43 PMOrdering Provider: FEDERICO Sorensen inical Indication: [id number]: [id number]: PainComparison: NoneTechnique: Using a helical scanner, sequential axial imaging of the brain wasobtained without the administration of intravenous contrast. The exam wasobtained from the skull base to vertex.This exam was performed according to the our departmental dose-optimizationprogram which includes automated exposure control, adjustment of the mA and/orkV according to patient size and/or use of iterative reconstruction techniques.Findings:Patchy, diffuse subcortical white matter hypoattenuations, nonspecific yet mostsuggestive of microvascular ischemic change. Global parenchymal volume loss aswell as intracranial atherosclerosis.Subtleloss of nicolas-white differentiation seen within the left caudate headand/or left frontal montiel radiata which may represent an age- indeterminate orpotentially subacute infarct.There is no midline shift or hydrocephalus.There is no acute intracranial hemorrhage or mass effect.The calvarium is intact.There is no fracture.There is no lytic or sclerotic lesion.The visualized paranasal sinuses and mastoid air cells are clear.IMPRESSION:1. Age-indeterminate infarct seen within the left frontal white matter extendingto the margin of the left caudate head. No evidence of acute intracranialhemorrhage.2. Otherwise, nonacute CT scan of the brain without intravenous contrastadministration.3.Global parenchymal volume loss and microvascular ischemic changes.This final report was electronically signed by Dr Miriam Kemp MD 46:08 PMDictated By: MIRIAM KEMPDate: 05/26/2023 18:08STLMLHIGH SENSITIVITY [id number] 17:45:00* Test Item Value Reference Range Interpretation Comme nts HIGH SENSITIVITY TROPONIN (t est code = TNIH) 7 ng/L 0-34 [id number] 17:45:00* Test Item Value Reference Range Interpretation Comme nts Sodium (test code = NA) 137 mmol/l 136-145 Potassium (test code = K) 3.8 mmol/l 3.5-5.1 Chloride (test code = CL) 106 mmol/l 98-107 Calcium (test code = CALC) 9.4 mg/dl 8.5-10.1 CO2 (test code = CO2) 29 mmol/l 21-32 Glucose (test code = GLU) 115 mg/dl 74-106 H BUN (test code = BUN) 11.0 mg/dl 7.0-18.0 Creatinine (test code = CREA) 0.8 mg/dl 0.5-1.3 Anion Gap (test code = GAP) 2 mmol/l Estimated Glomerular Filtration Rate (eGFR) (test code = EGFR) >60 As of 3, reported eGFR is based on the CKD-EPI 2020 equation that does not use a race coefficient. [facility] WITH AUTO [id number] 17:29:00* Test Item Value Reference Range Interpretation Comme nts WBC (test code = WBC) 8.43 10\\S\\3/ul 4.80-10.80 RBC (test code = RBC) 4.45 10\\S\\6/ul 4.20-5.40 Hemoglobin (test code = HGB) 14.0 gm/dl 12.0-14.0 Hematocrit (test code = HCT) 41.5 % 37.0-47.0 MCV (test code = MCV) 93.3 fL 81.0-99.0 MCH (test code = MCH) 31.5 pg 27.0-31.0 H MCHC (test code = MCHC) 33.7 gm/dl 33.0-37.0 Platelet (test code = PLT) 268 10\\S\\3/ul 130-400 RDW (test code = RDWVC) 12.8 % 11.5-14.5 MPV (test code = MPV) 10.3 fL 7.4-10.4 A NE% (test code = NE) 67.3 % 42.0-75.0 LY% (test code = LY) 23.0 % 13.0-42.0 MO% (test code = MO) 6.6 % 4.0-14.0 EO% (test code = EO) 2.4 % 1.0-3.0 BA% (test code = BA) 0.5 % 1.0-3.0 L IG% (test code = IG%) 0.2 % 0.0-0.4 STLMLXR CHEST AP/PA 1 [id number] 17:18:09 [facility] (LU/LINA/SA)Name: YE ARNOLD : 1955 Sex: FProcedure: AP View ChestOrder date: 05/26/2023 4:11 PMOrdering Provider: ELLEN Sadler In dication: [id number]: PainComparison: 11/17/2023Findings:Cardiomediastinal silhouette is within normal limits.The lungs are clear. No large pleural effusions or pneumothorax. Osseousstructures are nonacute.No evidence of active tuberculosis.Impression:No acute cardiopulmonary process.This final report was electronically signed by Dr Miriam Kemp MD 45:12 PMDictated By: MIRIAM KEMPDate: 05/26/2023 17:12STLMLDRUG SCREEN [id number] 19:00:00* Test Item Value Reference Range Interpretation Comme nts Amphetamines (test code = AMPHET) NEG BARBITUATES (test code = NELY) NEG Benzodiazepines (test code = BENZO) NEG Cocaine (test code = NICOLE) NEG Methadone (test code = MTD) NEG Opiates (test code = OPIAT) NEG PHENCYCLIDINE, PCP (test code = PCP) NEG The following ta ble provides an interpretive guide for the Drugs of Abuse ran on the Siem[employer] [place] analyzer listed there in: Amphetamines < 1000 ng/ml = Negative Barbituates < 200 ng/ml = Negative Benzodiazapines < 200 ngml = Negative Cocaine < 300 ng/ml = Negative Methadone < 300 ng/ml = Negative Opiate < 300 ng/ml = Negative PCP < 25 ng/ml = Negative THC < 50 ng/ml = Negative Results equal to or greater than the above cut-off values = Presumptive Positive. Confirmation of Presumptive Positive results are available upon request. Screening results are for MEDICAL USE ONLY. Cannabinoids, THC (test code = THC) NEG STLMLHEPATIC FUNCTION PANEL (LIVER)2023-01-21 17:34:00* Test Item Value Reference Range Interpretation Comme nts T Protein (test code = TP) 7.8 gm/dl 6.4-8.2 Albumin (test code = ALB) 3.6 gm/dl 3.4-5.0 AST (SGOT) (test code = AST) 15 U/L 15-37 ALT (SGPT) (test code = ALT) 23 U/L 13-61 Alkaline Phos (test code = ALKP) 68 U/L 45-117 Bilirubin, Total (test code = TBIL) 0.4 mg/dl 0.2-1.0 Direct Bilirubin (test code = DBIL) <0.1 mg/dl 0.0-0.3 N Indirect Bilirubin (test cod e = IBIL) 0.4 mg/dl 0.0-1.1 [id number] 17:34:00* Test Item Value Reference Range Interpretation Comme nts Magnesium (test code = MG) 2.0 mg/dl 1.6-2.6 STLMLTSH (Ultra Sensitive)2023-01-21 17:34:00* Test Item Value Reference Range Interpretation Comme nts TSH (test code = TSH) 1.80 mIU/L 0.35-3.74 STLMLHIGH SENSITIVITY [id number] 17:21:00* Test Item Value Reference Range Interpretation Comme nts HIGH SENSITIVITY TROPONIN (test code = TNIH) 6 ng/L 0-34 CHANGE IN TEST M ETHOD A change in the test method for Troponin has gone into effect. We now test for High Sensitivity Troponin. The new units of measure are ng/L, and the new 99th percentile cutoff of 34 ng/L for FEMALE and 53 ng/L for MALE. New critical values will be called for any troponin greater than or equal to 500 ng/L. [id number] 17:21:00* Test Item Value Reference Range Interpretation Comme nts Sodium (test code = NA) 138 mmol/l 136-145 Potassium (test code = K) 4.0 mmol/l 3.5-5.1 Chloride (test code = CL) 111 mmol/l 98-107 H Calcium (test code = CALC) 8.8 mg/dl 8.5-10.1 CO2 (test code = CO2) 22 mmol/l 21-32 Glucose (test code = GLU) 181 mg/dl 74-106 H BUN (test code = BUN) 18.0 mg/dl 7.0-18.0 Creatinine (test code = CREA) 1.0 mg/dl 0.5-1.3 Anion Gap (test code = GAP) 5 mmol/l Estimated Glomerular Filtration Rate (eGFR) (test code = EGFR) 59 As of 3, reported eGFR is based on the CKD-EPI 2020 equation that does not use a race coefficient. STLMLPT AND [id number] 17:17:00* Test Item Value Reference Range Interpretation Comme nts Protime (test code = PT) 10.3 seconds 9.5-12.1 INR (test code = INR) 0.9 0.9-1.1 INR results are intended ONLY to monitor Oral Anticoagulant therapy in stablized patients. The INR Therapeutic Range is 2.0 - 3.0 Patients with a mechanical heart, the INR Range is 2.5 - 3.5 STLMLSTAT LAB CBC WITH AUTO [id number] 16:48:00* Test Item Value Reference Range Interpretation Comme nts WBC (test code = WBC) 8.74 10\\S\\3/ul 4.80-10.80 RBC (test code = RBC) 4.27 10\\S\\6/ul 4.20-5.40 Hemoglobin (test code = HGB) 13.7 gm/dl 12.0-14.0 Hematocrit (test code = HCT) 40.2 % 37.0-47.0 MCV (test code = MCV) 94.1 fL 81.0-99.0 MCH (test code = MCH) 32.1 pg 27.0-31.0 H MCHC (test code = MCHC) 34.1 gm/dl 33.0-37.0 Platelet (test code = PLT) 302 10\\S\\3/ul 130-400 RDW (test code = RDWVC) 13.3 % 11.5-14.5 MPV (test code = MPV) 9.5 fL 7.4-10.4 A NE% (test code = NE) 58.4 % 42.0-75.0 LY% (test code = LY) 31.0 % 13.0-42.0 MO% (test code = MO) 7.6 % 4.0-14.0 EO% (test code = EO) 2.2 % 1.0-3.0 BA% (test code = BA) 0.6 % 1.0-3.0 L IG% (test code = IG%) 0.2 % 0.0-0.4 STLMLXR CHEST AP/PA 1 [id number] 16:46:[address] [facility])Name: YE ARNOLD : 1955 Sex: FProcedure: AP View ChestOrder date: 01/21/2023 4:07 PMOrdering Provider: FRANSISCO Romero In dication: Chest painComparison: 04/11/2022Findings:Cardiomediastinal silhouette is within normal limits.The lungs are clear. No large pleural effusions or pneumothorax. Osseousstructures are nonacute.No evidence of active tuberculosis.Impression:No acute cardiopulmonary process.This final report was e lectronically signed by Dr Miriam Kemp MD 34:40 PMDictated By: MIRIAM KEMPDate: 01/21/2023 16:[id number] 12:40:00* Test Item Value Reference Range Interpretation Comme nts Glucose Lvl (test code = Glucose Lvl) 93 70-99 BUN (test code = BUN) 17 7-22 Creatinine Lvl (test code = Creatinine Lvl) 0.70 0.50-1.40 Sodium Lvl (test code = Sodium Lvl) 139 135-145 Potassium Lvl (test code = P otassium Lvl) 4.0 3.5-5.1 Chloride Lvl (test code = Chloride Lvl) 111 95-109 CO2 (test code = CO2) 24 24-32 Calcium Lvl (test code = Calcium Lvl) 8.5 8.5-10.5 AGAP (test code = AGAP) 8.0 10.0-20.0 eGFR (test code = eGFR) 95 [facility] [id number] 12:40:00* Test Item Value Reference Range Interpretation Comme nts WBC (test code = WBC) 7.7 3.7-10.4 RBC (test code = RBC) 3.99 4.20-5.40 Hgb (test code = Hgb) 12.6 12.0-16.0 Hct (test code = Hct) 36.8 36.0-48.0 MCV (test code = MCV) 92.3 80.0-98.0 MCH (test code = MCH) 31.5 pg 27.0-31.0 MCHC (test code = MCHC) 34.1 32.0-36.0 RDW (test code = RDW) 14.2 11.5-14.5 Platelet (test code = Platelet) 248 133-450 MPV (test code = MPV) 8.0 7.4-10.4 [id number] 18:33:00* Test Item Value Reference Range Interpretation Comme nts PTT (test code = PTT) 61.9 s 22.9-35.8 [facility] Ho[id number] 11:16:00* Test Item Value Reference Range Interpretation Comme nts TSH (test code = TSH) 1.800 0.360-3.740 [facility] [id number] 20:31:33* Test Item Value Reference Range Interpretation Comme nts RADRPT (test code = RADRPT) Radiation Dose CTDIVOL = 0 (mGy): DLP = 643.5 (mGy-cm)PROCEDURE INFORMATION: Exam: CTA Chest With Contrast Exam date and time: 12/17/2022 2:26 PM Age: 67 years old Clinical indication: /sob elevated dimer TECHNIQUE: Imaging protocol: Computed tomographic angiography of the chest with contrast. Exam focused on the arteries. 3D rendering (Not supervised by radiologist): MIP and/or 3D reconstructed images were created by the technologist. Radiation optimization: All CT scans at this facility use at least one of these dose optimization techniques: automated exposure control; mA and/or kV adjustment per patient size (includes targeted exams where dose is matched to clinical indication); or iterative reconstruction. Contrast material: OMNI 350; Contrast volume: 100 ml; Contrast route: INTRAVENOUS (IV); REPORTING DATA: Count of CT and Cardiac NM exams in prior 12 months: This patient has received 0 known CTs and 0 known cardiac nuclear medicine studies in the 12 months prior to the current study. COMPARISON: CR CHEST 1VIEW DX 12/17/2022 1:15 PM RADIATION DOSE METRICS: Total DLP (mGy-cm): 643.5 FINDINGS: Pulmonary arteries: No central or segmental pulmonary emboli are noted. Great vessels off aortic arch: Aberrant right subclavian artery as a benign anatomic variant. Aorta: No signs of thoracic aortic aneurysm or dissection. Lungs: No pulmonary edema or consolidation. Mild bilateral subpleural subsegmental atelectasis. Pleural spaces: No pneumothorax. No pleural effusion. Heart: Borderline size heart with mild concentric left ventricular hypertrophy. No signs of intracardiac thrombus or ventricular aneurysm. [place] left atrial appendage without thrombus. No pericardial thickening or effusion. Lymph nodes: No thoracic adenopathy. Intraperitoneal space: No acute upper abdominal findings along the visualized segments. Bones/joints: No destructive bone lesions. Soft tissues: Unremarkable. IMPRESSION: 1. No central or segmental pulmonary emboli. 2. No signs of thoracic aortic aneurysm or dissection. 3. Borderline size heart with mild concentric left ventricular hypertrophy. 4. Aberrant right subclavian artery. 5. No pulmonary edema or consolidation. 6. No acute upper abdominal findings.Jeyson Oshea MD On 12/17/2022 15:30:09; MARINA-[id number] [facility] [id number] 18:55:13* Test Item Value Reference Range Interpretation Comme [facility] RADRPT (test code = RADRPT) PROCEDURE INFORMATION: Exam: XR Chest Exam date and time: 12/17/2022 1:15 PM Age: 67 years old Clinical indication: /tachycardia, SOB TECHNIQUE: Imaging protocol: Radiologic exam of the chest. Views: 1 view. COMPARISON: No relevant prior studies available. FINDINGS: Lungs: Lungs are clear without focal consolidation. Pleural spaces: No pleural effusion. No pneumothorax. Heart/Mediastinum: Cardiomediastinal contours are within normal limits. Bones/joints: No acute osseous abnormality. IMPRESSION: No acute radiographic abnormality of the chest. Tiffanie Vee MD On 12/17/2022 13:54:24; [id number] [facility] [id number] 18:08:00* Test Item Value Reference Range Interpretation Comme nts U Benzodiaz Scr (test code = U Benzodiaz Scr) Negative *NA*(12/17/22 1:08 PM) Magnesium Lvl (test code = Magnesium Lvl) 1.8 1.8-2.4 proBNP (test code = proBNP) 262 <=125 HS Troponin I (test code = HS Troponin I) 6 U Amph Scr (test code = U Amph Scr) Negative *NA*(12/17/22 1:08 PM) U Nely Scr (test code = U Nely Scr) Negative *NA*(12/17/22 1:08 PM) U Cocaine Scr (test code = U Cocaine Scr) Negative *NA*(12/17/22 1:08 PM) U Cannab Scr (test code = U Cannab Scr) Negative *NA*(12/17/22 1:08 PM) U Opiate Scr (test code = U Opiate Scr) Negative *NA*(12/17/22 1:08 PM) U Phencyclidine Scr (test code = U Phencyclidine Scr) Negative *NA*(12/17/22 1:08 PM) UDS Note (test code = UDS Note) See Note 2*NA*(12/17/22 1:08 PM) [facility] [id number] 18:08:00* Test Item Value Reference Range Interpretation Comme nts D-Dimer (test code = D-Dimer) 1.60 PT (test code = PT) 12.9 s 12.0-14.7 INR (test code = INR) 0.97 1 0.85-1.17 Segs (test code = Segs) 56.7 45.0-75.0 Lymphocytes (test code = Lymphocytes) 34.7 20.0-40.0 Monocytes (test code = Monocytes) 5.9 2.0-12.0 Eosinophils (test code = Eosinophils) 2.0 <=4.0 Basophils (test code = Basophils) 0.7 <=1.0 Neutrophils # (test code = N eutrophils #) 4.6 1.5-8.1 Lymphocytes # (test code = L ymphocytes #) 2.8 1.0-5.5 Monocytes # (test code = Monocytes #) 0.5 <=0.8 Eosinophils # (test code = E osinophils #) 0.2 <=0.5 Basophils # (test code = Basophils #) 0.1 <=0.2 [facility], [id number] 18:43:00#2 Blood Culture - 15 mins apart, preferably From Different SitesSpecimen: BloodCollected: 07/28/2022 17:30 Status: Final Last Updated: 08/03/2022 18:43 (1) #2 Blood Culture - 15 mins apart, preferably From Different Sites CULTURE (Final) (Final) No Growth After 5 DaysSTLMLCULTURE, ANAEROBE [id number] 07:22:00ANEROBIC BLOOD Culture #2, 15 mins apart Preferrably different sitesSpecimen: BloodCollected: 07/28/2022 17:30 Status: Final Last Updated: 08/03/2022 07:21 (1) ANEROBIC BLOOD Culture #2, 15 mins apart Preferrably differentsites CULTURE (Final) (Final) No Growth After5 DaysSTLMLCULTURE, [id number] 07:22:00#1 BLOOD CULTURESpecimen: BloodCollected: 07/28/2022 17:15 Status: Final Last Updated: 08/03/2022 07:21 (1) #1 BLOOD CULTURE CULTURE (Final) (Final) No Growth After 5 DaysSTLMLCULTURE, ANAEROBE [id number] 07:22:00ANEROBIC BLOOD Culture #1Specimen: BloodCollected: 07/28/2022 17:15 Status: Final Last Updated: 08/03/2022 07:21 (1) ANEROBIC BLOOD Culture #1 CULTURE (Final) (Final) No Growth After 5 Days STLMLHEPATIC FUNCTION PANEL (LIVER)2022-07-28 17:58:00* Test Item Value Reference Range Interpretation Comme nts T Protein (test code = TP) 7.4 gm/dl 6.4-8.2 Albumin (test code = ALB) 3.4 gm/dl 3.4-5.0 AST (SGOT) (test code = AST) 21 U/L 15-37 ALT (SGPT) (test code = ALT) 39 U/L 13-61 Alkaline Phos (test code = ALKP) 78 U/L 45-117 Bilirubin, Total (test code = TBIL) 0.4 mg/dl 0.2-1.0 Direct Bilirubin (test code = DBIL) <0.1 mg/dl 0.0-0.3 N Indirect Bilirubin (test cod e = IBIL) 0.4 mg/dl 0.0-1.1 STLMLXR FOOT COMP MIN 3 [id number] 17:43:24 [facility])Name: YE ARNOLD : 1955 Sex: FProcedure: XR FOOT COMP MIN 3 VW leftOrder Date: 07/28/2022 4:35 PMOrdering Provider: SHARON HARRISONRADClinical Indication: [id number]: Pain in left footComparison: NoneFindings:No fracture, focal osseous destruction, or malalignment. Joint spaces arepreserved. Diffuse soft tissue swelling is seen about the foot.IMPRESSION:No acute osseous abnormality.Diffuse soft tissue swelling about the foot.This final report was electronically signed by Dr Yohannes Giron MD 35:37 PMDictatedBy: RENATE GIRONKDate: 07/28/2022 17:37STLMLSTAT LAB CBC WITH AUTO [id number] 17:27:00* Test Item Value Reference Range Interpretation Comme nts WBC (test code = WBC) 14.01 10\\S\\3/ul 4.80-10.80 H RBC (test code = RBC) 4.19 10\\S\\6/ul 4.20-5.40 L Hemoglobin (test code = HGB) 12.9 gm/dl 12.0-14.0 Hematocrit (test code = HCT) 38.0 % 37.0-47.0 MCV (test code = MCV) 90.7 fL 81.0-99.0 MCH (test code = MCH) 30.8 pg 27.0-31.0 MCHC (test code = MCHC) 33.9 gm/dl 33.0-37.0 Platelet (test code = PLT) 246 10\\S\\3/ul 130-400 RDW (test code = RDWVC) 12.7 % 11.5-14.5 MPV (test code = MPV) 9.2 fL 7.4-10.4 A NE% (test code = NE) 85.4 % 42.0-75.0 H LY% (test code = LY) 7.6 % 13.0-42.0 L MO% (test code = MO) 5.8 % 4.0-14.0 EO% (test code = EO) 0.6 % 1.0-3.0 L BA% (test code = BA) 0.3 % 1.0-3.0 L IG% (test code = IG%) 0.3 % 0.0-0.4 [facility] [id number] 17:26:00* Test Item Value Reference Range Interpretation Comme nts LACTATE (test code = LAC) 1.40 mmol/l 0.90-1.70 STAT x 1, then x1 in 2 hoursWE[facility] CHEM [id number] 17:26:00* Test Item Value Reference Range Interpretation Comme nts Sodium (test code = NA) 133 mmol/l 138-146 L Potassium (test code = K) 4.1 mmol/l 3.5-4.9 IONIZED CALCIUM (test code = ICA) 1.16 mmol/l 1.12-1.32 A Chloride (test code = CL) 102 mmol/l 98-109 Glucose (test code = GLU) 114 mg/dl 70-105 H Creatinine (test code = CREA) 0.8 mg/dl 0.6-1.3 Estimated Glomerular Filtrat ion Rate (eGFR) (test code = EGFR) >60 BUN (test code = BUN) 9 mg/dl 6-17 CO2 (test code = CO2) 25.0 mmol/l 24.0-29.0 STLMLURINALYSIS WITH [id number] 12:54:00* Test Item Value Reference Range Interpretation Comme nts Color (test code = UCOLR) Yellow Clarity (test code = UCLAR) Clear Glucose (test code = UGLUC) TRACE NEGATIVE A Bilirubin (test code = UBILI) NEGATIVE NEGATIVE N Ketones (test code = UKET) TRACE NEGATIVE A Specific [place] (test code = USPGR) >1.030 1.005-1.030 A Blood (test code = UBLD) NEGATIVE NEGATIVE N PH (test code = UPH) 5.5 4.5-8.0 A Protein (test code = UPROT) 15 NEGATIVE A Urobilinogen (test code = U UROB) 0.2 See_Comment N [Automated messa ge] The system which generated this result transmitted reference range: 0.2. The reference range was not used to interpret this result as normal/abnormal. Nitrite (test code = UNITR) NEGATIVE NEGATIVE N Leukocyte Esterase (test code = ULEUK) NEGATIVE NEGATIVE N RBC (test code = RBCUR) 2-5 0-5 A WBC (test code = WBCUR) 11-20 NONE,0-1,2-5,6-10 A Bacteria (test code = UBACT) TRACE None Seen,Trace A Mucous (test code = UMUC) LARGE None Seen A Squamous Epithelial (test code = SQEP) 51-74 0-10 A Non-squamous Epithelial (test code = NSE) 2 NONE SEEN A [facility] CHEM [id number] 11:59:00* Test Item Value Reference Range Interpretation Comme nts Sodium (test code = NA) 137 mmol/l 138-146 L Potassium (test code = K) 4.4 mmol/l 3.5-4.9 IONIZED CALCIUM (test code = ICA) 1.15 mmol/l 1.12-1.32 A Chloride (test code = CL) 101 mmol/l 98-109 Glucose (test code = GLU) 151 mg/dl 70-105 H Creatinine (test code = CREA) 0.9 mg/dl 0.6-1.3 Estimated Glomerular Filtrat ion Rate (eGFR) (test code = EGFR) >60 BUN (test code = BUN) 18 mg/dl 6-17 H CO2 (test code = CO2) 24.3 mmol/l 24.0-29.0 [facility] CBC WITH AUTO [id number] 11:58:00* Test Item Value Reference Range Interpretation Comme nts WBC (test code = WBC) 9.92 10\\S\\3/ul 4.80-10.80 RBC (test code = RBC) 4.80 10\\S\\6/ul 4.20-5.40 Hemoglobin (test code = HGB) 15.0 gm/dl 12.0-14.0 H Hematocrit (test code = HCT) 44.5 % 37.0-47.0 MCV (test code = MCV) 92.7 fL 81.0-99.0 MCH (test code = MCH) 31.3 pg 27.0-31.0 H MCHC (test code = MCHC) 33.7 gm/dl 33.0-37.0 Platelet (test code = PLT) 263 10\\S\\3/ul 130-400 RDW (test code = RDWVC) 13.1 % 11.5-14.5 MPV (test code = MPV) 9.3 fL 7.4-10.4 A NE% (test code = NE) 89.8 % 42.0-75.0 H LY% (test code = LY) 5.5 % 13.0-42.0 L MO% (test code = MO) 3.9 % 4.0-14.0 L EO% (test code = EO) 0.4 % 1.0-3.0 L BA% (test code = BA) 0.2 % 1.0-3.0 L IG% (test code = IG%) 0.2 % 0.0-0.4 STLMLCOVID EXTENDED [id number] 10:53:00* Test Item Value Reference Range Interpretation Comme nts COVID-19, Real Time PCR-SONALI (test code = COVID) NEGATIVE NEGATIVE N FIRST TEST: (test code = COVO.FT) N SYMPTOMATIC DEFINED BY CD C: (test code = COVO.SYMPH) N HOSPITALIZED: (test code = COVO.HOSP) N FLU A, PCR (test code = FLUAPCR) NEGATIVE Negative AA ADMITTED TO ICU: (test code = COVO.ICU) N FLU B, PCR (test code = FLUBPCR) NEGATIVE Negative AA EMPLOYEE IN HEALTHCARE: (valentino t code = COVO.EMP) N RSV (test code = RSV) NEGATIVE RESIDENT IN CONGREGATE CARE (test code = COVO.STACIE) N : (test code = COVO.PREG) Unk STLMLCULTURE, ANAEROBE [id number] 15:12:00Anerobic Blood Culture #2 IF NEEDED, 15 mins apart Preferably different sitesSpecimen: BloodCollected: 04/11/2022 14:19 Status: Final Last Updated: 04/16/2022 15:11 (1) Anerobic Blood Culture #2 IF NEEDED, 15 mins apart Preferablydifferent sites CULTURE (Final) (Final) No Growth After 5 DaysSTLMLCULTURE, [id number] 15:12:00BLOOD CULTURE #2 - 15 mins apart Preferably different sitesSpecimen: BloodCollected: 04/11/2022 14:19 Status: Final Last Updated: 04/16/2022 15:11 (1) BLOOD CULTURE #2 - 15 mins apart Preferably different sites CULTURE (Final) (Final) No Growth After 5 DaysSTLMLCULTURE, [id number] 15:12:00BLOOD CULTURE #1Specimen: BloodCollected: 04/11/2022 14:05 Status: Final Last Updated: 04/16/2022 15:11 (1) BLOOD CULTURE #1 CULTURE (Final) (Final) No Growth After 5 DaysSTLMLCULTURE, ANAEROBE [id number] 15:11:00#1 Anerobic Blood CultureSpecimen: BloodCollected: 04/11/2022 14:05 Status: Final Last Updated: 04/16/2022 15:11 (1) #1 Anerobic Blood Culture CULTURE (Final) (Final) No Growth After 5 Days STLMLSTREP A [id number] 07:05:00* Test Item Value Reference Range Interpretation Comme nts Strep A culture (test code = STRAC) Negative Negative N STLMLHIGH SENSITIVITY [id number] 15:24:00* Test Item Value Reference Range Interpretation Comme nts HIGH SENSITIVITY TROPONIN (test code = TNIH) 9 ng/L 0-34 CHANGE IN TEST M ETHOD A change in the test method for Troponin has gone into effect. We now test for High Sensitivity Troponin. The new units of measure are ng/L, and the new 99th percentile cutoff of 34 ng/L for FEMALE and 53 ng/L for MALE. New critical values will be called for any troponin greater than or equal to 500 ng/L. [id number] 14:47:00* Test Item Value Reference Range Interpretation Comme [facility] Magnesium (test code = MG) 1.9 mg/dl 1.6-2.6 [facility] (LIVER)2022-04-11 14:46:00* Test Item Value Reference Range Interpretation Comme nts T Protein (test code = TP) 7.6 gm/dl 6.4-8.2 Albumin (test code = ALB) 3.6 gm/dl 3.4-5.0 AST (SGOT) (test code = AST) 21 U/L 15-37 ALT (SGPT) (test code = ALT) 57 U/L 13-61 Alkaline Phos (test code = ALKP) 78 U/L 45-117 Bilirubin, Total (test code = TBIL) 0.3 mg/dl 0.2-1.0 Direct Bilirubin (test code = DBIL) <0.1 mg/dl 0.0-0.3 N Indirect Bilirubin (test cod e = IBIL) 0.3 mg/dl 0.0-1.1 STLMLPT AND [id number] 14:40:00* Test Item Value Reference Range Interpretation [facility] Protime (test code = PT) 10.0 seconds 9.5-12.1 INR (test code = INR) <0.9 0.9-1.1 L INR results are intended ONLY to monitor Oral Anticoagulant therapy in stablized patients. The INR Therapeutic Range is 2.0 - 3.0 Patients with a mechanical heart, the INR Range is 2.5 - 3.5 [id number] 14:39:00* Test Item Value Reference Range Interpretation [facility] aPTT (test code = PTT) 24.2 seconds 23.9-30.7 [facility] FLU [id number] 14:38:00* Test Item Value Reference Range Interpretation [facility] Flu A Screen (test code = FLUA) Negative Negative N EFFECTIVE 2012 - A method change has occurred. A molecular method for Flu testing will replace the current method. Both Flu A and Flu B will be tested and results will continue to be listed as "Negative or Positive". While this method is more specific in the detection of both strains, confirmatory testing is available upon request. ldh Flu B Screen (test code = FLUB) Negative Negative N EFFECTIVE 2012 - A method change has occurred. A molecular method for Flu testing will replace the current method. Both Flu A and Flu B will be tested and results will continue to be listed as "Negative or Positive". While this method is more specific in the detection of both strains, confirmatory testing is available upon request. ldh STLMLCOVID 19 [id number] 14:38:00* Test Item Value Reference Range Interpretation Comme nts COVID 19 ANTIGEN (test code = COVAG) Negative Negative N STLMLSTAT LAB STREP [id number] 14:37:00* Test Item Value Reference Range Interpretation Comme nts Strep A Screen (test code = SAS) Negative Negative N TESTING IS PER FORMED ON THE [employer] ANA[employer] WHICH EMPLOYS IMMUNOFLUORESCENCE TECHNOLOGY TO DETECT GROUP A STREPTOCOCCAL ANTIGENS FROM THROAT SWABS OF SYMPTOMATIC PATIENTS. ALL NEGATIVE RESULTS ARE CONFIRMED BY BACTERIAL CULTURE BECAUSE NEGATIVE RESULTS DO NOT PRECLUDE GROUP A STREP INFECTION AND SHOULD NOT BE USED THE SOLE BASIS FOR TREATMENT. THIS TEST IS INTENDED FOR PROFESSIONAL AND LABORATORY USE AN AID IN THE DIAGNOSIS OF GROUP A STREPTOCOCCAL INFECTION. STLMLXR CHEST AP/PA 1 [id number] 14:27:15 [facility] ([facility]/[place])Name: YE ARNOLD : 1955 Sex: FProcedure: XR CHEST AP/PA 1 VIEWOrder Date: 04/11/2022 2:04 PMOrdering Provider: BEVERLY VALENCIAlinical Indication: [id number]: CoughComparison: November 06, 2021Findings:There is left basilar subsegmental atelectasis. No pleural effusion orpneumothorax. Heart size is within normal limits. No acute osseous abnormality.Impression:Left basilar subsegmental atelectasis.This final report was electronically signed by Dr Yohannes Giron MD 32:21 PMDictated By: Heather GIRON: 04/11/2022 14:21 [facility] LAB CBC WITH AUTO [id number] 14:22:00* Test Item Value Reference Range Interpretation Comme nts WBC (test code = WBC) 8.12 10\\S\\3/ul 4.80-10.80 RBC (test code = RBC) 4.09 10\\S\\6/ul 4.20-5.40 L Hemoglobin (test code = HGB) 12.8 gm/dl 12.0-14.0 Hematocrit (test code = HCT) 38.2 % 37.0-47.0 MCV (test code = MCV) 93.4 fL 81.0-99.0 MCH (test code = MCH) 31.3 pg 27.0-31.0 H MCHC (test code = MCHC) 33.5 gm/dl 33.0-37.0 Platelet (test code = PLT) 253 10\\S\\3/ul 130-400 RDW (test code = RDWVC) 13.2 % 11.5-14.5 MPV (test code = MPV) 9.3 fL 7.4-10.4 A NE% (test code = NE) 63.0 % 42.0-75.0 LY% (test code = LY) 22.8 % 13.0-42.0 MO% (test code = MO) 11.0 % 4.0-14.0 EO% (test code = EO) 2.5 % 1.0-3.0 BA% (test code = BA) 0.5 % 1.0-3.0 L IG% (test code = IG%) 0.2 % 0.0-0.4 [facility] [id number] 14:22:00* Test Item Value Reference Range Interpretation Comme nts Sodium (test code = NA) 142 mmol/l 138-146 Potassium (test code = K) 3.0 mmol/l 3.5-4.9 L IONIZED CALCIUM (test code = ICA) 1.19 mmol/l 1.12-1.32 A Chloride (test code = CL) 109 mmol/l 98-109 Glucose (test code = GLU) 99 mg/dl 70-105 Creatinine (test code = CREA) 0.6 mg/dl 0.6-1.3 BUN (test code = BUN) 11 mg/dl 6-17 CO2 (test code = CO2) 23.9 mmol/l 24.0-29.0 L [facility] LAB LACTIC [id number] 14:21:00* Test Item Value Reference Range Interpretation Comme [facility] LACTATE (test code = LAC) 1.20 mmol/l 0.90-1.70 LACTIC ACID STAT AND IN 2 HOURSSAINT [facility]PH[facility]ENTERHIGH SENSITIVITY [id number] 18:57:00 * Test Item Value Reference Range Interpretation Comme [facility] HIGH SENSITIVITY TROPONIN (test code = TNIH) 12.3 ng/L 0.0-34.0 CHANGE IN TEST M ETHOD A change in the test method for Troponin has gone into effect. We now test for High Sensitivity Troponin. The new units of measure are ng/L, and the new 99th percentile cutoff of 34 ng/L for FEMALE and 53 ng/L for MALE. New critical values will be called for any troponin greater than or equal to 500 ng/L. [facility] [id number] 18:29:00* Test Item Value Reference Range Interpretation Comme [facility] B-Peptide (test code = BNP) 87 pg/ml 0-100 [facility] LAB CHEM [id number] 18:21:00* Test Item Value Reference Range Interpretation Comme [facility] Sodium (test code = NA) 137 mmol/l 138-146 L Potassium (test code = K) 4.1 mmol/l 3.5-4.9 IONIZED CALCIUM (test code = ICA) 1.10 1.12-1.32 AA Chloride (test code = CL) 108 mmol/l 98-109 Glucose (test code = GLU) 114 mg/dl 70-105 H Creatinine (test code = CREA) 0.7 mg/dl 0.6-1.3 BUN (test code = BUN) 17 mg/dl 6-17 CO2 (test code = CO2) 21.4 mmol/l 24.0-29.0 L [facility] CBC WITH AUTO [id number] 18:21:00* Test Item Value Reference Range Interpretation Comme nts WBC (test code = WBC) 8.00 10\\S\\3/ul 4.80-10.80 RBC (test code = RBC) 4.58 10\\S\\6/ul 4.20-5.40 Hemoglobin (test code = HGB) 14.2 gm/dl 12.0-14.0 H Hematocrit (test code = HCT) 40.9 % 37.0-47.0 MCV (test code = MCV) 89.3 fL 81.0-99.0 MCH (test code = MCH) 31.0 pg 27.0-31.0 MCHC (test code = MCHC) 34.7 gm/dl 33.0-37.0 Platelet (test code = PLT) 258 10\\S\\3/ul 130-400 RDW (test code = RDWVC) 12.7 % 11.5-14.5 MPV (test code = MPV) 9.2 fL 7.4-10.4 A NE% (test code = NE) 59.1 % 42.0-75.0 LY% (test code = LY) 30.8 % 13.0-42.0 MO% (test code = MO) 7.1 % 4.0-14.0 EO% (test code = EO) 2.4 % 1.0-3.0 BA% (test code = BA) 0.5 % 1.0-3.0 L IG% (test code = IG%) 0.1 % 0.0-0.4 STLMLXR CHEST AP/PA 1 [id number] 17:50:04 [facility] ([facility])Name: YE ARNOLD : 1955 Sex: FProcedure: AP View ChestOrder date: 11/06/2021 5:14 PMOrdering Provider: CANDELARIA Burnsinical Indication: [id number]: DyspneaComparison: December 13, 2020Findings:Cardiomediastinal silhouette iswithin normal limits.The lungs are clear. No large pleural effusions or pneumothorax. Osseousstructures are nonacute.No evidence of active tuberculosis.Impression:No acute cardiopulmonary process.This final report was electronically signed by Dr Miriam Kemp MD :44 PMDictated By: MIRIAM KEMPDate: 11/06/2021 17:44STLMLXR CHEST AP/PA 1 [id number] 07:50:12 [facility] ([facility]/[place])Name: YE ARNOLD : 1955 Sex: FPROCEDURE INFORMATION:Exam: XR ChestExam date and time: 12/13/2020 4:40 AMAge: 65 years oldClinical indication: Dyspnea; Patient HX: SOB, former smoker, no surgeryTECHNIQUE:Imaging protocol: XR of the chest.Views: 1 view.COMPARISON:CR XR CHEST AP/PA 1 VIEW 08/14/2019 11:31 PMFINDINGS:Lungs: There are bilateral faint airspace opacities noted predominantly in thelower lung cabrera. Findings are not significant changed when compared to theprior study.Pleural spaces: Unremarkable. No pleural effusion. No pneumothorax.Heart/Mediastinum: Unremarkable. No cardiomegaly.Bones/joints: Unremarkable.IMPRESSION:There are bilateral faint airspace opacities noted predominantly in the lowerlung cabrera. Findings are not significant changed when compared to the priorstudy.This Final report was electronically signed by Maricel Plummer MD on Dec:49 AM CDT.Dictated By: MARICEL PLUMMERDate: 12/13/2020 07:49STLMLHEPATIC FUNCTION PANEL (LIVER)2020-12-13 05:43:00* Test Item Value Reference Range Interpretation Comme nts T Protein (test code = TP) 8.4 gm/dl 6.4-8.2 H Albumin (test code = ALB) 3.4 gm/dl 3.4-5.0 AST (SGOT) (test code = AST) 21 U/L 15-37 ALT (SGPT) (test code = ALT) 39 U/L 13-61 Alkaline Phos (test code = ALKP) 90 U/L 45-117 Total Bilirubin (test code = TBIL) 0.3 mg/dl 0.2-1.0 Direct Bilirubin (test code = DBIL) <0.1 mg/dl 0.0-0.3 N Indirect Bilirubin (test cod e = IBIL) 0.3 mg/dl 0.0-1.1 STLMLD-DIMER [id number] 05:21:00* Test Item Value Reference Range Interpretation Comme nts D DIMER (test code = D DIM) 0.73 mg/L FEU 0.19-0.50 H METHOD CHANGE: Due to the discontinued mehodology currently in use, a change in the testing method is necessary. The Reference Ranges will change dramatically, and results are obtained by the observance of clotting activation mesured on the Sysm[employer] instruments. This same methodology is currently in use for PT/INR , PTT, AND HEPARIN testing in our Labs. The D-Dimer assay is an aid in the evaluation of thromboembolic events, as in DIC, DVT, Pulmonary Embolism, and other thromboembolic diseases, and should not be used without other diagnostic measures, to properly diagnose and treat thromboembolic disease. REFERENCE RANGE: 0.19 - 0.50 mg/L FEU (Fibrinogen Equivalent Units) Cut-Off Value is: > .50 mg/L FEU Note: Results greater than (>) the Cut-Off are to be considered POSITIVE, and significant in the evaluation of thromboembolic diseases. Results less than (<) the Cut-Off are to be considered NEGATIVE, and a low probability of thromboembolic disease. STLMLPT AND [id number] 05:21:00* Test Item Value Reference Range Interpretation Comme nts Protime (test code = PT) 9.6 seconds 9.5-12.1 INR (test code = INR) 0.9 0.9-1.1 INR results are intended ONLY to monitor Oral Anticoagulant therapy in stablized patients. The INR Therapeutic Range is 2.0 - 3.0 Patients with a mechanical heart, the INR Range is 2.5 - 3.5 [facility] [id number] 05:09:00* Test Item Value Reference Range Interpretation Comme nts Troponin-I (test code = TROP) 0.06 ng/ml 0.00-0.08 The 99th Percent ile URL is 0.08 ng/mL for the Luis iStat Troponin I. The Joint Society of Cardiology/[place] [employer] (ESC/ACC) and the National Academy of Clinical Biochemistry Standards of Laboratory Practices (NACB) recommends that the diagnosis of AMI includes the presence of clinical history suggestive of Acute Coronary Syndrome (ACS) and a maximum concentration of cardiac troponin exceeding the 99th percentile of a normal reference population [upper reference limit (URL)] on at least one occasion during the first 24 hours after the clinical event. [facility] CHEM [id number] 05:03:00* Test Item Value Reference Range Interpretation Comme nts Sodium (test code = NA) 141 mmol/l 138-146 Potassium (test code = K) 3.0 mmol/l 3.5-4.9 L IONIZED CALCIUM (test code = ICA) 1.19 1.12-1.32 AA Chloride (test code = CL) 107 mmol/l 98-109 Glucose (test code = GLU) 115 mg/dl 70-105 H Creatinine (test code = CREA) 0.7 mg/dl 0.6-1.3 BUN (test code = BUN) 13 mg/dl 6-17 CO2 (test code = CO2) 28.9 mmol/l 24.0-29.0 [facility] CBC WITH AUTO [id number] 05:03:00* Test Item Value Reference Range Interpretation Comme nts WBC (test code = WBC) 7.42 10\\S\\3/ul 4.80-10.80 RBC (test code = RBC) 4.43 10\\S\\6/ul 4.20-5.40 Hemoglobin (test code = HGB) 13.6 gm/dl 12.0-14.0 Hematocrit (test code = HCT) 41.4 % 37.0-47.0 MCV (test code = MCV) 93.5 fL 81.0-99.0 MCH (test code = MCH) 30.7 pg 27.0-31.0 MCHC (test code = MCHC) 32.9 gm/dl 33.0-37.0 L Platelet (test code = PLT) 379 10\\S\\3/ul 130-400 RDW (test code = RDWVC) 13.0 % 11.5-14.5 MPV (test code = MPV) 10.0 fL 7.4-10.4 A NE% (test code = NE) 51.8 % 42.0-75.0 LY% (test code = LY) 36.5 % 13.0-42.0 MO% (test code = MO) 7.1 % 4.0-14.0 EO% (test code = EO) 3.4 % 1.0-3.0 H BA% (test code = BA) 0.8 % 1.0-3.0 L IG% (test code = IG%) 0.4 % 0.0-0.4 [facility] [id number] 23:26:00* Test Item Value Reference Range Interpretation Comme nts Sodium (test code = NA) 138 mmol/l 138-146 Potassium (test code = K) 4.3 mmol/l 3.5-4.9 Chloride (test code = CL) 99 mmol/l 98-109 IONIZED CALCIUM (test code = ICA) 1.17 1.12-1.32 AA CO2 (test code = CO2) 28 mmol/l 24-29 Glucose (test code = GLU) 123 mg/dl 70-105 H BUN (test code = BUN) 10 mg/dl 6-17 Creatinine (test code = CREA) 0.8 mg/dl 0.6-1.3 [facility] LACTIC [id number] 23:23:00* Test Item Value Reference Range Interpretation Comme nts LACTATE (test code = LAC) 1.10 mmol/l 0.90-1.70 LOBBYSTLMLSTAT LAB CBC WITH AUTO [id number] 23:22:00* Test Item Value Reference Range Interpretation Comme nts WBC (test code = WBC) 8.59 10\\S\\3/ul 4.80-10.80 RBC (test code = RBC) 4.38 10\\S\\6/ul 4.20-5.40 Hemoglobin (test code = HGB) 13.7 gm/dl 12.0-14.0 Hematocrit (test code = HCT) 41.1 % 37.0-47.0 MCV (test code = MCV) 93.8 fL 81.0-99.0 MCH (test code = MCH) 31.3 pg 27.0-31.0 H MCHC (test code = MCHC) 33.3 gm/dl 33.0-37.0 Platelet (test code = PLT) 217 10\\S\\3/ul 130-400 RDW (test code = RDWVC) 12.3 % 11.5-14.5 MPV (test code = MPV) 9.2 fL 7.4-10.4 A NE% (test code = NE) 79.3 % 42.0-75.0 H LY% (test code = LY) 12.2 % 13.0-42.0 L MO% (test code = MO) 7.6 % 4.0-14.0 EO% (test code = EO) 0.3 % 1.0-3.0 L BA% (test code = BA) 0.3 % 1.0-3.0 L IG% (test code = IG%) 0.3 % 0.0-0.4 [facility]-LEBANONBYSTLMLCULTURE, [id number] 07:46:00Specimen: BloodCollected: 08/14/2019 23:45 Status: Final Last Updated: 08/20/2019 07:45 Culture Result (Final) (Final) No Growth After 5 DaysAsc[facility] HospitalHEATHER Maria [id number] 07:46:00Specimen: BloodCollected: 08/14/2019 23:45 Status: Final Last Updated: 08/20/2019 07:45 Culture Result (Final) (Final) No Growth After 5 Days[facility]-L[facility]kinCULTURE, ANAEROBE [id number] 07:46:00 Specimen: BloodCollected: 08/14/2019 23:25 Status: Final Last Updated: 08/20/2019 07:45 Culture Result (Final) (Final) No Growth After 5 DaysMay[facility]-LufkinCULTURE, [id number] 07:46:00Specimen: BloodCollected: 08/14/2019 23:25 Status: Final Last Updated: 08/20/2019 07:45 Culture Result (Final) (Final) No Growth After 5 Days[facility]-LufkinCoronavirus 2018 (In House)2019-08-15 05:23:00* Test Item Value Reference Range Interpretation Comme nts COVID-19 (test code = COVID) Positive Negative A [employer]GX SARS-C oV-2 Reagents for BD MAX System, AND the [employer] Covid-19 is for in vitro use under FDA Emergency Use Authorization only. Positive result called to Rochelle VENTURA [facility]-LufkinCT ANGIO CHEST W/ [id number] 01:55:44 shortness of breath, tachycardia, rule out PEPROCEDURE INFORMATION:Exam: CT Angiography Chest With ContrastExam date and time: 08/15/2019 12:26 AMAge: 64 years oldClinical indication: Cough and fever and shortness of breath and other:TachycardiaTECHNIQUE:Imaging protocol: Computed tomographic angiography of the chest withintravenous contrast.3D rendering: MIP and/or 3D reconstructed images were created by thetechnologist.Radiation optimization: All CT scans at this facility use at least one of thesedose optimization techniques: automated exposure control; mA and/or kVadjustment per patient size (includes targeted exams where dose is matched toclinical indication); or iterative reconstruction.Contrast material: 387; Contrast volume: 70 ml; Contrast route: IV;COMPARISON:CT ANGIO CHEST W/WO CONTRAST 07/10/2018 2:50 AMFINDINGS:Pulmonary arteries: Contrast timing not optimized to evaluate for pulmonaryembolism.Great vessels off aortic arch: Incidental aberrancy right subclavian artery.Aorta: No aortic aneurysm. No aortic dissection.Lungs: Bilateral multi-lobar peripheral- predominant ground-glass opacities.Pleural space: No pneumothorax or pleural effusion.Heart: The heart is within normal size limits. No abdnormal pericardialeffusion.Lymph nodes: Subcentimeter mediastinal and bilateral hilar lymph nodes.Bones/joints: Chronic appearing right lateral 5th rib fracture.Soft tissues: No acute finding.IMPRESSION:Bilateral multi-lobar peripheral- predominant ground-glass opacities consistentwith pneumonia.This Final report was electronically signed by John Valenzuela MD on 1:55 AM CDT.Dictated By: JOHN VALENZUELA: 08/15/2019 01:55[facility]XR [facility] AP/PA 1 [id number] 00:03:34PROCEDURE INFORMATION:Exam: XR Chest, 1 ViewExam date and time: 08/14/2019 11:08 PMAge: 64 years oldClinical indication: Cough and fever and shortness of breath and wheezingTECHNIQUE:Imaging protocol: XR of the chestViews: 1 view.COMPARISON:DX XR CHEST 2 PA LATERAL 04/21/2019 2:37 AMFINDINGS:Lungs: Bilateral peripheral nodular densities and bibasilar atelectasis.Pleural space: No pleural effusion orpneumothorax.Heart/Mediastinum: Normal cardiomediastinal sillhouette.Bones/joints: No acute findings .IMPRESSION:Nonspecific bilateral peripheral nodular densities and bibasilar atelectasis.Findings could represent pneumonia.This Final report was electronically signed by John Valenzuela MD on 12:03 AM CDT.Dictated By: JOHN VALENZUELA: 08/15/2019 00:03[facility] [place] URINALYSIS WITH [id number] 23:56:00* Test Item Value Reference Range Interpretation Comme nts Color (test code = UCOLR) Yellow Clarity (test code = UCLAR) Clear Glucose (test code = UGLUC) NEGATIVE NEGATIVE N Bilirubin (test code = UBILI) NEGATIVE NEGATIVE N Ketones (test code = UKET) NEGATIVE NEGATIVE N Specific [place] (test code = USPGR) 1.015 1.005-1.030 A Blood (test code = UBLD) NEGATIVE NEGATIVE N PH (test code = UPH) 6.5 4.5-8.0 A Protein (test code = UPROT) Trace NEGATIVE A Urobilinogen (test code = U UROB) 0.2 >0.2 N Nitrite (test code = UNITR) NEGATIVE NEGATIVE N Leukocyte Esterase (test code = ULEUK) NEGATIVE NEGATIVE N WBC (test code = WBCUR) None Seen 0-5 A RBC (test code = RBCUR) None Seen 0-5 A Epithial Cells (test code = U EPI) 10-20 0-10 A Mucous (test code = UMUC) Trace None Seen A Bacteria (test code = UBACT) Trace None Seen,Trace N Urine Casts (test code = UR CAST) Rare Hyaline Cast None Seen A [facility] CHEM [id number] 23:39:00* Test Item Value Reference Range Interpretation Comme nts Sodium (test code = NA) 139 mmol/l 138-146 Potassium (test code = K) 3.4 mmol/l 3.5-4.9 L Chloride (test code = CL) 99 mmol/l 98-109 IONIZED CALCIUM (test code = ICA) 1.11 1.12-1.32 A CO2 (test code = CO2) 29 mmol/l 24-29 Glucose (test code = GLU) 117 mg/dl 70-105 H BUN (test code = BUN) 12 mg/dl 6-17 Creatinine (test code = CREA) 0.7 mg/dl 0.6-1.3 [facility] LACTIC [id number] 23:38:00* Test Item Value Reference Range Interpretation Comme nts LACTATE (test code = LAC) 0.90 mmol/l 0.90-1.70 [facility] CBC WITH AUTO [id number] 23:37:00* Test Item Value Reference Range Interpretation Comme nts WBC (test code = WBC) 7.43 10\\S\\3/ul 4.80-10.80 RBC (test code = RBC) 4.60 10\\S\\6/ul 4.20-5.40 Hemoglobin (test code = HGB) 14.0 gm/dl 12.0-14.0 Hematocrit (test code = HCT) 42.1 % 37.0-47.0 MCV (test code = MCV) 91.5 fL 81.0-99.0 MCH (test code = MCH) 30.4 pg 27.0-31.0 MCHC (test code = MCHC) 33.3 gm/dl 33.0-37.0 Platelet (test code = PLT) 277 10\\S\\3/ul 130-400 RDW (test code = RDWVC) 13.6 % 11.5-14.5 MPV (test code = MPV) 9.5 fL 7.4-10.4 A NE% (test code = NE) 53.9 % 42.0-75.0 LY% (test code = LY) 36.5 % 13.0-42.0 MO% (test code = MO) 9.0 % 4.0-14.0 EO% (test code = EO) 0.0 % 1.0-3.0 L BA% (test code = BA) 0.3 % 1.0-3.0 L IG% (test code = IG%) 0.3 % 0.0-0.4 [facility]kinXR CHEST 2 PA [id number] 02:52:50PROCEDURE INFORMATION:Exam: XR Chest, 2 ViewsExam date and time: 04/21/2019 1:55 AMAge: 63 years oldClinical indication: Cough and fever and other: Body acheTECHNIQUE:Imaging protocol: XR of the chestViews: 2 views.COMPARISON:No relevant prior studies available.FINDINGS:Lungs: Streaky bibasilar opacities noted, probably related to subsegmentalatelectasis. No consolidation.Pleural space: Unremarkable. No pleural effusion. No pneumothorax.Heart/Mediastinum: Unremarkable. No cardiomegaly.Bones/joints: Unremarkable.IMPRESSION:No acute findings.This Final report was electronically signed by Nakul Madrigal MD on 2:52 AM CDT.Dictated By: CLIFF MDARIGALate: 04/21/2019 02:52[facility] FLU [id number] 01:45:00* Test Item Value Reference Range Interpretation Comme nts Flu A Screen (test code = FLUA) Negative Negative N EFFECTIVE 2012 - A method change has occurred. A molecular method for Flu testing will replace the current method. Both Flu A and Flu B will be tested and results will continue to be listed as "Negative or Positive". While this method is more specific in the detection of both strains, confirmatory testing is available upon request. [facility] Flu B Screen (test code = FLUB) Negative Negative N EFFECTIVE 2012 - A method change has occurred. A molecular method for Flu testing will replace the current method. Both Flu A and Flu B will be tested and results will continue to be listed as "Negative or Positive". While this method is more specific in the detection of both strains, confirmatory testing is available upon request. [facility]kinCULT[facility], ANAEROBE [id number] 09:37:00ANEROBIC BLOOD Culture #2, 15 mins apart Preferrably different sitesSpecimen: BloodCollected: 07/10/2018 01:25 Status: Final Last Updated: 07/15/2018 09:36 (1) ANEROBIC BLOOD Culture #2, 15 mins apart Preferrably differentsites Culture Result (Final) (Final) No Growth [facility] 5 Days[facility] CULTURE, [id number] 09:37:00#1 BLOOD CULTURESpecimen: BloodCollected: 07/10/2018 01:25 Status: Final Last Updated: 07/15/2018 09:36 (1) #1 BLOOD CULTURE Culture Result (Final) (Final) No Growth After 5 Days[facility]kinCULTURE, ANAEROBE [id number] 09:37:00ANEROBIC BLOOD Culture #1 Specimen: BloodCollected: 07/10/2018 01:10 Status: Final Last Updated: 07/15/2018 09:36 (1) ANEROBIC BLOOD Culture #1 Culture Result (Final) (Final) No Growth After 5 DaysMay[facility]-fkinCULTURE, [id number] 09:37:00#2 Blood Culture - 15 mins apart, preferably From Different Sites Specimen: BloodCollected: 07/10/2018 01:10 Status: Final Last Updated: 07/15/2018 09:36 (1) #2 Blood Culture - 15 mins apart, preferably From Different Sites Culture Result (Final) (Final) No Growth After 5 Days[facility] SystemkinCULTURE, [id number] 06:23:00Specimen: Urine SpecimensCollected: 07/10/2018 01:30 Status: Final Last Updated: 07/12/2018 06:23 Culture Result (Final) (Final) No Growth After 48 HoursMay[facility]-LufkinXR CHEST AP/PA 1 [id number] 07:27:19Procedure: XR CHEST AP/PA 1 VIEWOrder Date: 07/10/2018 12:44 AMOrdering Provider: ELLEN Pradoinical Indication: [id number]: FeverComparison: August 04, 2011Findings:Cardiac size is normal.Pulmonary vasculature is normal.Mediastinal contour is normal.Aortic contour is normal.There is no consolidationor effusion.There is no evidence of active tuberculosis.There is no mass or pneumothorax.There is no skeletal abnormality.Impression: Negative AP portable chest x-ray.This final report was electronically signed by Dr Bipin Cai MD 07/10/20187:20 AMDictated By: BIPIN CAIDate: 07/10/2018 07:20[facility]IN[facility] WITH [id number] 07:04:00* Test Item Value Reference Range Interpretation Comme nts Color (test code = UCOLR) Yellow Clarity (test code = UCLAR) Cloudy Glucose (test code = UGLUC) NEGATIVE NEGATIVE N Bilirubin (test code = UBILI) NEGATIVE NEGATIVE N Ketones (test code = UKET) NEGATIVE NEGATIVE N Specific [place] (test code = USPGR) 1.015 1.005-1.030 A Blood (test code = UBLD) Trace-Lysed NEGATIVE A PH (test code = UPH) 7.0 4.5-8.0 A Protein (test code = UPROT) NEGATIVE NEGATIVE N Urobilinogen (test code = U UROB) 0.2 >0.2 N Nitrite (test code = UNITR) NEGATIVE NEGATIVE N Leukocyte Esterase (test cod e = ULEUK) Moderate NEGATIVE A WBC (test code = WBCUR) 5-10 0-5 A RBC (test code = RBCUR) None Seen 0-5 A Epithial Cells (test code = U EPI) 0-5 0-10 A Mucous (test code = UMUC) None Seen None Seen N Bacteria (test code = UBACT) None Seen None Seen,Trace N [facility]aver DamfkinPT AND [id number] 06:47:00* Test Item Value Reference Range Interpretation Comme nts Protime (test code = PT) 9.5 seconds 9.0-11.9 INR (test code = INR) 0.9 0.9-1.1 INR results are intended ONLY to monitor Oral Anticoagulant therapy in stablized patients. The INR Therapeutic Range is 2.0 - 3.0 Patients with a mechanical heart, the INR Range is 2.5 - 3.5 [facility] CHEM [id number] 06:33:00* Test Item Value Reference Range Interpretation Comme nts Sodium (test code = NA) 141 mmol/l 138-146 The value 143 originally released by [facility] on 07/10/2018 05:45 was changed to 141 by [id number] on 07/10/2018 06:33 Potassium (test code = K) 3.4 mmol/l 3.5-4.9 L The value 3.5 originally released by [id number] on 07/10/2018 05:45 was changed to 3.4 by [id number] on 07/10/2018 06:33 Chloride (test code = CL) 101 mmol/l 98-109 The value 108 originally released by [id number] on 07/10/2018 05:45 was changed to 101 by [id number] on 07/10/2018 06:33 IONIZED CALCIUM (test code = ICA) 1.16 CO2 (test code = CO2) 28 mmol/l 24-29 The value 29 originally released by [id number] on 07/10/2018 05:45 was changed to 28 by [id number] on 07/10/2018 06:33 Creatinine (test code = CREA) 0.8 mg/dl 0.5-1.3 Glucose (test code = GLU) 104 mg/dl 70-105 The value 106 originally released by [id number] on 07/10/2018 05:45 was changed to 104 by [id number] on 07/10/2018 06:33 BUN (test code = BUN) 11 mg/dl 6-17 The value 12.0 originally released by [id number] on 07/10/2018 05:45 was changed to 11 by [id number] on 07/10/2018 06:33 [facility] LACTIC [id number] 06:29:00* Test Item Value Reference Range Interpretation Comme nts LACTATE (test code = LAC) 1.12 mmol/l 0.90-1.70 STAT x 1, then x1 in 3 hoursAsp[facility] CBC WITH AUTO [id number] 06:26:00* Test Item Value Reference Range Interpretation Comme nts WBC (test code = WBC) 5.76 10\\S\\3/ul 4.80-10.80 RBC (test code = RBC) 3.94 10\\S\\6/ul 4.20-5.40 L Hemoglobin (test code = HGB) 12.5 gm/dl 12.0-14.0 Hematocrit (test code = HCT) 35.8 % 37.0-47.0 L MCV (test code = MCV) 90.9 fL 81.0-99.0 MCH (test code = MCH) 31.7 pg 27.0-31.0 H MCHC (test code = MCHC) 34.9 gm/dl 33.0-37.0 Platelet (test code = PLT) 283 10\\S\\3/ul 130-400 RDW (test code = RDWVC) 13.0 % 11.5-14.5 MPV (test code = MPV) 9.1 fL 7.4-10.4 A NE% (test code = NE) 65.1 % 42.0-75.0 LY% (test code = LY) 20.3 % 13.0-42.0 MO% (test code = MO) 10.8 % 4.0-14.0 EO% (test code = EO) 3.0 % 1.0-3.0 BA% (test code = BA) 0.5 % 1.0-3.0 L IG% (test code = IG%) 0.3 % 0.0-0.4 [facility]kinLIPASE2019-[facility] 05:45:00* Test Item Value Reference Range Interpretation Comme nts Lipase (test code = LIPA) 107 U/L 73-393 [facility] DamfkinCMP2019-05-06 05:45:00* Test Item Value Reference Range Interpretation Comme nts Sodium (test code = NA) 143 mmol/l 137-145 Potassium (test code = K) 3.5 mmol/l 3.5-5.1 Chloride (test code = CL) 108 mmol/l 98-107 H Calcium (test code = CALC) 8.6 mg/dl 8.5-10.1 CO2 (test code = CO2) 29 mmol/l 21-32 Glucose (test code = GLU) 106 mg/dl 74-106 BUN (test code = BUN) 12.0 mg/dl 7.0-18.0 Creatinine (test code = CREA) 0.8 mg/dl 0.5-1.3 T Protein (test code = TP) 7.3 gm/dl 6.4-8.2 Albumin (test code = ALB) 3.2 gm/dl 3.4-5.0 L A/G Ratio (test code = AGRAT) 0.8 % 1.1-2.2 L AST (SGOT) (test code = AST) 30 U/L 15-37 ALT (SGPT) (test code = ALT) 56 U/L 13-61 Alkaline Phos (test code = ALKP) 86 U/L 45-117 Total Bilirubin (test code = TBIL) 0.3 mg/dl 0.2-1.0 Globulin (test code = GLOBU) 4.1 gm/dl 2.3-3.5 H Calcium, Corrected (test code = CALCCORR) 9.2 mg/dl 8.4-10.2 Various formulas exist for corrected serum calcium results, each yielding different values. This corrected result was based on the formula: Corrected Calcium = SerumCalcium + [0.8 * ( 4 - SerumAlbumin)] EGFR if (test code = EGFRAA) >60 mL/min/1.73m\\ S\\2 EGFR if Non- (test code = EGFRNA) >60 mL/min/1.73m\\ S\\2 Estimated Glomerular Filtration Rate (eGFR) Reference Intervals Decision Points for 18 years and older and average body mass: >= 60 Does not exclude kidney disease. 30 - 59 Suggests moderate chronic kidney disease and indicates the need for further investigation including assessment of proteinuria and cardiovascular factors. < 30 Usually indicates a need for referral for assessment and management of chronic kidney failure. [facility]kinCT ABDOMEN/PELVIS W/[id number] 04:25:47NPO 4 hours. Do not withhold meds right sided abd pain s/p cholecystectomyEXAM:CT Abdomen and Pelvis With ContrastEXAM DATE/TIME:07/10/2018 2:31 AMCLINICAL HISTORY:62 years old, female; Pain and signs and symptoms; Fever and nausea; Abdominalpain; Prior surgeryTECHNIQUE:Imaging protocol: Axial computed tomography images of the abdomen and pelviswith intravenous contrast.Radiation optimization: All CT scans at this facility use at least one ofthese dose optimization techniques: automated exposure control; mA and/or kVadjustment per patient size (includes targeted exams where dose is matched toclinical indication); or iterative reconstruction.Contrast material: ISOVUE 370; Contrast volume: 90 ml; Contrast route: IV;COMPARISON:No relevant prior studies available.FINDINGS:Lungs: Left perihilar/upper lobe infiltrate most compatible with pneumonia.Minimal dependent basilar atelectasis.Mediastinum: Patulous distal esophagus.ABDOMEN:Liver: Diffuse fatty infiltration ofthe liver. No discrete mass.Gallbladder and bile ducts: Status post cholecystectomy.Infiltration/inflammation within the gallbladder fossa, possibly postsurgicalor related to inflammation within the adjacent duodenum.Pancreas: Unremarkable. No ductal dilation.Spleen: Unremarkable. No splenomegaly.Adrenals: Left adrenal adenoma measures 2.6 CM. No further evaluationnecessary.Kidneys and ureters: Unremarkable. No hydronephrosis.Stomach and bowel: Wall thickening duodenal bulb/proximal duodenum withadjacent infiltration/inflammation. Duodenitis not excluded. No perforation orabscess. High attenuation contrast throughout the colon. Mild diverticulosiswithout diverticulitis. No colitis. Wall thickening within the sigmoid likelylack of adequate distention. Comparison with any recent colonoscopyresultsrecommended.Appendix: Appendix appears unremarkable with internal contrast withoutinflammation.PELVIS:Bladder: Unremarkable as visualized.Reproductive: Atrophic postmenopausal uterus. No adnexal masses.ABDOMEN and PELVIS:Intraperitoneal space: No free fluid. No free air.Bones/joints: Moderate degenerative changes noted throughout the spine. Grade1 spondylolisthesis L3 on L4 related to degenerative facet disease. Associatedsignificant central stenosis.Soft tissues: Unremarkable.Vasculature: Atherosclerotic calcification within the aorta without aneurysm.Lymph nodes: Unremarkable. No enlarged lymph nodes.IMPRESSION:1. Left perihilar/upper lobe infiltrate most compatible with pneumonia.2. Wall thickening duodenal bulb/proximal duodenum with adjacentinfiltration/inflammation. Duodenitis not excluded. No perforation or abscess.Status post cholecystectomy.3. Additional nonemergent findings as described above.This Final report was electronically signed by Angeles Kaye MD on July2018 4:25 AM CDT.Dictated By: ANGELES KAYEDate: 07/10/2018 04:25[facility]/ [id number] 04:12:3620 g Cathlon Above the Antecubital or higher requiredEXAM:CT Angiography Chest With ContrastEXAM DATE/TIME:07/10/2018 2:31 AMCLINICAL HISTORY:62 years old, female; Signs and symptoms; Dyspnea and feverTECHNIQUE:Imaging protocol: Axial computed tomographic angiography images of the chestwith intravenous contrast using CT angiography protocol.3D rendering: MIP reconstructed images were created and reviewed.Radiation optimization: All CT scans at this facility use at least one ofthese dose optimization techniques: automated exposure control; mA and/orkVadjustment per patient size (includes targeted exams where dose is matched toclinical indication); or iterative reconstruction.Contrast material: ISOVUE 370; Contrast volume: 90 ml; Contrast route:IV;COMPARISON:No relevant prior studies available.FINDINGS:Limitations: Mild respiratory/motion artifact slightly limits evaluation.Pulmonary arteries: No evidence of acute pulmonary embolism.Aorta: Aorta normal caliber without aneurysm, dissection or disruption.Lungs: Left perihilar/upper lobe patchy infiltrates most consistent withpneumonia. Followup to document resolution recommended. Minimal d ependentbasilar atelectasis.Pleural space: Unremarkable. No pneumothorax. No pleural effusion.Heart: Cardiac size normal. No pericardial effusion. No right heart strain.Mediastinum: Patulous distal esophagus.Upper abdomen: Upper abdominal findings described on separate dedicated CTabdomen/pelvis report.Lymph nodes: Unremarkable. No enlarged lymph nodes.Bones/joints: Mild degenerative changes noted throughout the spine.Soft tissues: Unremarkable.IMPRESSION:1. Left perihilar/upper lobe patchy infiltrates most consistent with pneumonia.Followup to document resolution recommended.2. No evidence of acute pulmonary embolism.3. Cardiac size normal. No pericardial effusion. No right heart strain.4.Aorta normal caliber without aneurysm, dissection or disruption.5. Additional nonemergent findings as described above.This Final report was electronically signed by Angeles Kaye MD on July2018 4:12 AM CDT.Dictated By: ANGELES KAYEDate: 07/10/2018 04:12[facility] [id number] 12:15:00 [address] [place], [place] [address]Ypwrk: [phone] XKKA #: [id number] MedicalDirector: Fransisco Watt M.D.Surgical Pathology Consultation ReportPatient Name: YE ARNOLD Case #: [id number] Med. Rec. #: [id number]: [id number] Surgery Date: 07/05/2018 : 1955 (Age: 62) Received: 07/05/2018 Gender: F Copy to : Reported:07/06/2018Physician(s): Jeremy Schultz Specimen(s) ReceivedA: Gallbladder Final Pathologic DiagnosisGallbladder, cholecystectomy: - ACUTE AND CHRONIC CHOLECYSTITIS. - CHOLELITHIASIS. Electronically Signed Out mv/07/06/2018 Sally Mulligan MD, Board Certified in Anatomic Pathology Clinical HistoryAbdominal pain, gallstones.Gross DescriptionSpecimen labeled gallbladder consists of a gallbladder sac measuring 7 x2.5 x2.5 cm.The external surface is yellow-green and irregular. Theclippedcystic duct measures 0.1 cm in diameter. The gallbladder lumen containsbileand a single yellow granular stone that measures 0.9 cm. Thegallbladder wallmeasures 0.2 cm in thickness. The gallbladder mucosa is pink-green andtrabeculated. Hay Sorter sections are submitted for permanentsections asA1.jk/07/05/2018 Sally Mulligan MD, Board Certified in Anatomic Pathology Microscopic DescriptionGallbladder mucosa with luminal folds linedby columnar epithelium.Laminapropria show scattered chronic inflammatory cells. Acute inflammatorycellspermeate into surface epithelium. Muscular wall is hypertrophic andoccasionalRokitansky-Aschoff sinuses are identified. Billing Fee Code(s): A; [id number]-LufkinBMP 2018-07-06 04:42:00* Test Item Value Reference Range Interpretation Comme nts Sodium (test code = NA) 142 mmol/l 137-145 Potassium (test code = K) 3.8 mmol/l 3.5-5.1 Chloride (test code = CL) 107 mmol/l 98-107 Calcium (test code = CALC) 8.4 mg/dl 8.5-10.1 L CO2 (test code = CO2) 29 mmol/l 21-32 Glucose (test code = GLU) 139 mg/dl 74-106 H BUN (test code = BUN) 10.0 mg/dl 7.0-18.0 Creatinine (test code = CREA) 0.9 mg/dl 0.5-1.3 EGFR if (test code = EGFRAA) >60 mL/min/1.73m\\ S\\2 EGFR if Non- (test code = EGFRNA) >60 mL/min/1.73m\\ S\\2 Estimated Glomerular Filtration Rate (eGFR) Reference Intervals Decision Points for 18 years and older and average body mass: >= 60 Does not exclude kidney disease. 30 - 59 Suggests moderate chronic kidney disease and indicates the need for further investigation including assessment of proteinuria and cardiovascular factors. < 30 Usually indicates a need for referral for assessment and management of chronic kidney failure. [facility] WITH AUTO [id number] 04:37:00* Test Item Value Reference Range Interpretation Comme nts WBC (test code = WBC) 12.60 10\\S\\3/ul 4.80-10.80 H RBC (test code = RBC) 4.09 10\\S\\6/ul 4.20-5.40 L Hemoglobin (test code = HGB) 12.7 gm/dl 12.0-14.0 Hematocrit (test code = HCT) 37.4 % 37.0-47.0 MCV (test code = MCV) 91.4 fL 81.0-99.0 MCH (test code = MCH) 31.1 pg 27.0-31.0 H MCHC (test code = MCHC) 34.0 gm/dl 33.0-37.0 RDW (test code = RDWVC) 12.6 % 11.5-14.5 Platelet (test code = PLT) 262 10\\S\\3/ul 130-400 MPV (test code = MPV) 9.8 fL 7.4-10.4 A "NOT MEASURED" RESULTS ARE DISPLAYED WHEN THE INSTRUMENT HAS A SUPPRESSED OR UNREPORTABLE RESULT. THIS WILL MOST OFTEN HAPPEN WITH THE MPV WHEN THERE IS AN ABNORMAL PLATELET DISTRIBUTION DUE TO A CRITICAL LOW VALUE OR PLATELET CLUMPING. THE RDW MAY BE SUPPRESSED IF THERE ARE MULTIPLE PEAKS PRESENT ON THE RBC HISTOGRAM. IN THIS CASE, A MANUAL REVIEW OF THE SLIDE WILL BE PERFORMED, AND RBC MORPHOLOGY WILL BE NOTED ON THE REPORT. NE% (test code = NE) 81.1 % 42.0-75.0 H LY% (test code = LY) 10.5 % 13.0-42.0 L MO% (test code = MO) 7.8 % 4.0-14.0 EO% (test code = EO) 0.0 % 1.0-5.0 L BA% (test code = BA) 0.1 % 0.0-3.0 IG% (test code = IG%) 0.5 % 0.0-0.4 H [facility] WITH AUTO [id number] 04:58:00* Test Item Value Reference Range Interpretation Comme nts WBC (test code = WBC) 6.44 10\\S\\3/ul 4.80-10.80 RBC (test code = RBC) 3.92 10\\S\\6/ul 4.20-5.40 L Hemoglobin (test code = HGB) 12.3 gm/dl 12.0-14.0 Hematocrit (test code = HCT) 36.3 % 37.0-47.0 L MCV (test code = MCV) 92.6 fL 81.0-99.0 MCH (test code = MCH) 31.4 pg 27.0-31.0 H MCHC (test code = MCHC) 33.9 gm/dl 33.0-37.0 RDW (test code = RDWVC) 13.0 % 11.5-14.5 Platelet (test code = PLT) 228 10\\S\\3/ul 130-400 MPV (test code = MPV) 9.5 fL 7.4-10.4 A "NOT MEASURED" RESULTS ARE DISPLAYED WHEN THE INSTRUMENT HAS A SUPPRESSED OR UNREPORTABLE RESULT. THIS WILL MOST OFTEN HAPPEN WITH THE MPV WHEN THERE IS AN ABNORMAL PLATELET DISTRIBUTION DUE TO A CRITICAL LOW VALUE OR PLATELET CLUMPING. THE RDW MAY BE SUPPRESSED IF THERE ARE MULTIPLE PEAKS PRESENT ON THE RBC HISTOGRAM. IN THIS CASE, A MANUAL REVIEW OF THE SLIDE WILL BE PERFORMED, AND RBC MORPHOLOGY WILL BE NOTED ON THE REPORT. NE% (test code = NE) 51.7 % 42.0-75.0 LY% (test code = LY) 38.7 % 13.0-42.0 MO% (test code = MO) 7.3 % 4.0-14.0 EO% (test code = EO) 1.6 % 1.0-5.0 BA% (test code = BA) 0.5 % 0.0-3.0 IG% (test code = IG%) 0.2 % 0.0-0.4 [facility]-[id number] 04:52:00* Test Item Value Reference Range Interpretation Comme nts Sodium (test code = NA) 146 mmol/l 137-145 H Potassium (test code = K) 3.8 mmol/l 3.5-5.1 Chloride (test code = CL) 109 mmol/l 98-107 H Calcium (test code = CALC) 8.3 mg/dl 8.5-10.1 L CO2 (test code = CO2) 29 mmol/l 21-32 Glucose (test code = GLU) 96 mg/dl 74-106 BUN (test code = BUN) 8.0 mg/dl 7.0-18.0 Creatinine (test code = CREA) 0.8 mg/dl 0.5-1.3 EGFR if (test code = EGFRAA) >60 mL/min/1.73m\\ S\\2 EGFR if Non- (test code = EGFRNA) >60 mL/min/1.73m\\ S\\2 Estimated Glomerular Filtration Rate (eGFR) Reference Intervals Decision Points for 18 years and older and average body mass: >= 60 Does not exclude kidney disease. 30 - 59 Suggests moderate chronic kidney disease and indicates the need for further investigation including assessment of proteinuria and cardiovascular factors. < 30 Usually indicates a need for referral for assessment and management of chronic kidney failure. [facility]-LufkinXR ABDOMEN 2 VIEWS FLAT / [id number] 06:41:28Procedure: US GALLBLADDEROrder Date: 07/03/2018 8:47 PMOrdering Provider: ELLEN Pradoinical Indication: [id number]: Right upper quadrant painComparison: 2017Technique: Real-time ultrasonography was obtained over the right upper quadrantand medical billing representative images were recorded.Findings:There is a gallstone in the gallbladder neck.There is no gallbladder wall thickening or pericholecystic fluid.The gallbladder is normal in size and contour.The extrahepatic common duct is normal in size measuring 3 mm.The liver is normal in size and contour.There is diffuse increased echogenicity of the liver consistent with fattyinfiltration.There is no hepatic mass.There is no intrahepatic ductal dilatation.There is no ascites.Limited evaluation of the right kidney demonstrates no hydronephrosis.Pancreasare obscured by overlying bowel gas.Impression:Cholelithiasis without definite secondary findings to suggest acute calculuscholecystitis..Mild hepatic steatosis.Procedure: ABDOMEN 2 VIEWS FLAT / UPRIGHTOrder Date: 07/03/2018 8:47 PMOrdering Provider: ELLEN Pradoinical Indication: [id number]: Right upper quadrant painComparison: NoneFindings:Bowel gas pattern is non-obstructive. No pneumoperitoneum.There is moderate volume stool burden.No suspicious calcification. Surgical clips are seen in the pelvis.Impression:Nonobstructive bowel gas pattern.This final report was electronically signed byDr Yohannes Giron MD 07/04/20186:35 AMDictated By: RENATE GIRONKDate: 07/04/2018 06:35[facility] [id number] 06:41:22Procedure: US GALLBLADDEROrder Date: 07/03/2018 8:47 PMOrdering Provider: ELLEN Pradoinical Indication: [id number]: Right upper quadrant painComparison: 2017Technique: Real-time ultrasonography was obtained over the right upper quadrantand medical billing representative images were recorded.Findings:There is a gallstone in the gallbladder neck.There is no gallbladder wall thickening or pericholecystic fluid.The gallbladder is normal in size and contour.The extrahepatic common duct is normal in size measuring 3 mm.The liver is normal in size and contour.There is diffuse increased echogenicity of the liver consistent with fattyinfiltration.There is no hepatic mass.There is no intrahepatic ductal dilatation.There is no ascites.Limited evaluation of the right kidney demonstrates no hydronephrosis.Pancreasare obscured by overlying bowel gas.Impression:Cholelithiasis without definite secondary findings to suggest acute calculuscholecystitis..Mild hepatic steatosis.Procedure: ABDOMEN 2 VIEWS FLAT / UPRIGHTOrder Date: 07/03/2018 8:47 PMOrdering Provider: ELLEN Pradoinical Indication: [id number]: Right upper quadrant painComparison: NoneFindings:Bowel gas pattern is non-obstructive. No pneumoperitoneum.There is moderate volume stool burden.No suspicious calcification. Surgical clips are seen in the pelvis.Impression:Nonobstructive bowel gas pattern.This final report was electronically signed byDr Yohannes Giron MD 07/04/20186:35 AMDictated By: RENATE GIRONKDate: 07/04/2018 06:35[facility]CKATUNNAGLYCOSALATED HEMOGLOBIN 2018-07-04 05:30:00* Test Item Value Reference Range Interpretation Comme nts Hemoglobin A1C (test code = GLYCO) 5.6 % 4.2-6.3 A Mean Plasma Glucose (test code = MPG) 122 mg/dl 90-180 WHEN TEST RESU LTS FOR A1C EXCEED 14.0, THE LINEAR LIMIT OF THE INSTRUMENT, THE CALCULATED RESULT FOR THE MEAN GLUCOSE IS NOT RELIABLE. [facility] AND [id number] 05:23:00* Test Item Value Reference Range Interpretation Comme nts Protime (test code = PT) 9.9 seconds 9.0-11.9 INR (test code = INR) 1.0 0.9-1.1 INR results are intended ONLY to monitor Oral Anticoagulant therapy in stablized patients. The INR Therapeutic Range is 2.0 - 3.0 Patients with a mechanical heart, the INR Range is 2.5 - 3.5 [facility] LAB URINALYSIS WITHOUT [id number] 00:56:00* Test Item Value Reference Range Interpretation Comme nts Color (test code = UCOLR) Yellow Lt. Yellow A Clarity (test code = UCLAR) Clear Glucose (test code = UGLUC) NEGATIVE Negative A Bilirubin (test code = UBILI) NEGATIVE Negative A Ketones (test code = UKET) NEGATIVE Negative A Specific [place] (test code = USPGR) >=1.030 1.005-1.03 0 A Blood (test code = UBLD) NEGATIVE Negative A PH (test code = UPH) 5.5 4.5-8.0 A Protein (test code = UPROT) NEGATIVE Negative A Urobilinogen (test code = U UROB) 0.2 >0.2 N Nitrite (test code = UNITR) NEGATIVE Negative A Leukocyte Esterase (test cod e = ULEUK) Small Negative A [facility]2018-07-03 21:03:00 * Test Item Value Reference Range Interpretation Comme nts T Protein (test code = TP) 7.5 gm/dl 6.4-8.2 Albumin (test code = ALB) 3.8 gm/dl 3.4-5.0 AST (SGOT) (test code = AST) 22 U/L 15-37 ALT (SGPT) (test code = ALT) 31 U/L 13-61 Alkaline Phos (test code = ALKP) 83 U/L 45-117 Total Bilirubin (test code = TBIL) 0.4 mg/dl 0.2-1.0 Direct Bilirubin (test code = DBIL) <0.1 mg/dl 0.0-0.3 N Indirect Bilirubin (test cod e = IBIL) 0.4 mg/dl 0.0-1.1 [facility]ASE2019-04-29 20:55:00* Test Item Value Reference Range Interpretation Comme nts Lipase (test code = LIPA) 177 U/L 73-393 [facility] LAB CHEM [id number] 20:47:00* Test Item Value Reference Range Interpretation Comme nts Sodium (test code = NA) 140 mmol/l 138-146 Potassium (test code = K) 3.8 mmol/l 3.5-4.9 Chloride (test code = CL) 105 mmol/l 98-109 IONIZED CALCIUM (test code = ICA) 1.15 CO2 (test code = CO2) 23 mmol/l 24-29 L Glucose (test code = GLU) 142 mg/dl 70-105 H BUN (test code = BUN) 12 mg/dl 6-17 Creatinine (test code = CREA) 0.8 mg/dl 0.6-1.3 [facility] LAB CBC WITH AUTO [id number] 20:45:00* Test Item Value Reference Range Interpretation Comme nts WBC (test code = WBC) 6.79 10\\S\\3/ul 4.80-10.80 RBC (test code = RBC) 4.41 10\\S\\6/ul 4.20-5.40 Hemoglobin (test code = HGB) 13.5 gm/dl 12.0-14.0 Hematocrit (test code = HCT) 39.6 % 37.0-47.0 MCV (test code = MCV) 89.8 fL 81.0-99.0 MCH (test code = MCH) 30.6 pg 27.0-31.0 MCHC (test code = MCHC) 34.1 gm/dl 33.0-37.0 Platelet (test code = PLT) 252 10\\S\\3/ul 130-400 RDW (test code = RDWVC) 12.7 % 11.5-14.5 MPV (test code = MPV) 9.3 fL 7.4-10.4 A NE% (test code = NE) 69.2 % 42.0-75.0 LY% (test code = LY) 23.0 % 13.0-42.0 MO% (test code = MO) 6.2 % 4.0-14.0 EO% (test code = EO) 1.2 % 1.0-3.0 BA% (test code = BA) 0.3 % 1.0-3.0 L IG% (test code = IG%) 0.1 % 0.0-0.4 [facility], [id number] 06:06:00Specimen: Urine SpecimensCollected: 09/07/2017 13:11 Status: Final Last Updated: 09/09/2017 06:06 Culture Result (Final) (Final) >100,000 cc/mL Gram Negative Bacilli Isolate (Final) (Final) Escherichia coli Amoxicillin/clavu 8 S Ampicillin >=32 R Aztreonam <=1 S Cefazolin <=4 S Cefepime <=1 S Ceftriaxone <=1 S Ciprofloxacin <=0.25 S Gentamicin <=1 S Imipenem <=0.25 S Levofloxacin <=0.12 S Meropenem <=0.25 S Nitrofurantoin <=16 S Tetracycline <=1 S Trimeth/Sulfa <=20 S ESBL Negative -[facility]URINALYSIS WITH [id number] 14:27:00* Test Item Value Reference Range Interpretation Comme nts Color (test code = UCOLR) YELLOW Clarity (test code = UCLAR) SL CLOUDY Glucose (test code = UGLUC) NEGATIVE NEGATIVE N Bilirubin (test code = UBILI) NEGATIVE NEGATIVE N Ketones (test code = UKET) NEGATIVE NEGATIVE N Specific [place] (test code = USPGR) 1.020 1.005-1.030 A Blood (test code = UBLD) SMALL NEGATIVE A PH (test code = UPH) 6.0 4.5-8.0 A Protein (test code = UPROT) 100 NEGATIVE A Urobilinogen (test code = U UROB) 0.2 >0.2 N Nitrite (test code = UNITR) POSITIVE NEGATIVE A Leukocyte Esterase (test cod e = ULEUK) MODERATE NEGATIVE A WBC (test code = WBCUR) 40-50 0-5 A RBC (test code = RBCUR) 10-20 0-5 A Epithial Cells (test code = U EPI) 0-10 0-10 N Mucous (test code = UMUC) Trace None Seen A Bacteria (test code = UBACT) 4+ None Seen,Trace A [facility], [id number] 14:05:00* Test Item Value Reference Range Interpretation Comme nts Lipase (test code = LIPA) 59 U/L 8-223 [facility] WITH AUTO [id number] 13:30:00* Test Item Value Reference Range Interpretation Comme nts WBC (test code = WBC) 10.59 10\\S\\3/ul 4.80-10.80 RBC (test code = RBC) 4.26 10\\S\\6/ul 4.20-5.40 Hemoglobin (test code = HGB) 13.4 gm/dl 12.0-14.0 Hematocrit (test code = HCT) 38.7 % 37.0-47.0 MCV (test code = MCV) 90.8 fL 81.0-99.0 MCH (test code = MCH) 31.5 pg 27.0-31.0 H MCHC (test code = MCHC) 34.6 gm/dl 33.0-37.0 Platelet (test code = PLT) 267 10\\S\\3/ul 130-400 RDW (test code = RDWVC) 12.4 % 11.5-14.5 MPV (test code = MPV) 8.9 fL 7.4-10.4 A "NOT MEASURED" RESULTS ARE DISPLAYED WHEN THE INSTRUMENT HAS A SUPPRESSED OR UNREPORTABLE RESULT. THIS WILL MOST OFTEN HAPPEN WITH THE MPV WHEN THERE IS AN ABNORMAL PLATELET DISTRIBUTION DUE TO A CRITICAL LOW VALUE OR PLATELET CLUMPING. THE RDW MAY BE SUPPRESSED IF THERE ARE MULTIPLE PEAKS PRESENT ON THE RBC HISTOGRAM. IN THIS CASE, A MANUAL REVIEW OF THE SLIDE WILL BE PERFORMED, AND RBC MORPHOLOGY WILL BE NOTED ON THE REPORT. NE% (test code = NE) 73.8 % 42.0-75.0 LY% (test code = LY) 15.8 % 13.0-42.0 MO% (test code = MO) 9.4 % 4.0-14.0 EO% (test code = EO) 0.5 % 1.0-3.0 L BA% (test code = BA) 0.4 % 1.0-3.0 L IG% (test code = IG%) 0.1 % 0.0-0.4 ONLY AVAILABLE [address] [place] [address] LAB CHEM [id number] 13:29:00* Test Item Value Reference Range Interpretation Comme nts Sodium (test code = NA) 140 mmol/l 138-146 Potassium (test code = K) 3.1 mmol/l 3.5-4.9 L Chloride (test code = CL) 99 mmol/l 98-109 Ca2+ (test code = BGCCA2+) 1.15 mmol/l 1.12-1.32 CO2 (test code = CO2) 29 mmol/l 24-29 Glucose (test code = GLU) 132 mg/dl 70-105 H BUN (test code = BUN) 5 mg/dl 6-17 L Creatinine (test code = CREA) 0.8 mg/dl 0.6-1.3 ONLY AVAILABLE [address] [place] [address] WITH AUTO [id number] 03:00:00* Test Item Value Reference Range Interpretation Comme nts WBC (test code = WBC) 7.71 10\\S\\3/ul 4.80-10.80 RBC (test code = RBC) 3.83 10\\S\\6/ul 4.20-5.40 L Hemoglobin (test code = HGB) 12.0 gm/dl 12.0-14.0 Hematocrit (test code = HCT) 35.8 % 37.0-47.0 L MCV (test code = MCV) 93.5 fL 81.0-99.0 MCH (test code = MCH) 31.3 pg 27.0-31.0 H MCHC (test code = MCHC) 33.5 gm/dl 33.0-37.0 RDW (test code = RDWVC) 12.6 % 11.5-14.5 Platelet (test code = PLT) 256 10\\S\\3/ul 130-400 MPV (test code = MPV) 10.1 fL 7.4-10.4 A "NOT MEASURED" RESULTS ARE DISPLAYED WHEN THE INSTRUMENT HAS A SUPPRESSED OR UNREPORTABLE RESULT. THIS WILL MOST OFTEN HAPPEN WITH THE MPV WHEN THERE IS AN ABNORMAL PLATELET DISTRIBUTION DUE TO A CRITICAL LOW VALUE OR PLATELET CLUMPING. THE RDW MAY BE SUPPRESSED IF THERE ARE MULTIPLE PEAKS PRESENT ON THE RBC HISTOGRAM. IN THIS CASE, A MANUAL REVIEW OF THE SLIDE WILL BE PERFORMED, AND RBC MORPHOLOGY WILL BE NOTED ON THE REPORT. NE% (test code = NE) 71.9 % 42.0-75.0 LY% (test code = LY) 21.3 % 13.0-42.0 MO% (test code = MO) 5.4 % 4.0-14.0 EO% (test code = EO) 0.5 % 1.0-3.0 L BA% (test code = BA) 0.5 % 1.0-3.0 L IG% (test code = IG%) 0.4 % 0.0-0.4 ER [address]-LufkinLIPASE, [id number] 01:47:00* Test Item Value Reference Range Interpretation Comme nts Lipase (test code = LIPA) 216 U/L 8-223 ER 7 [address]kinHEPATIC FUNCTION PANEL (LIVER)2017-08-12 01:47:00* Test Item Value Reference Range Interpretation Comme nts T Protein (test code = TP) 8.0 gm/dl 5.1-8.7 Albumin (test code = ALB) 4.4 gm/dl 3.5-4.6 AST (SGOT) (test code = AST) 27 U/L 11-36 ALT (SGPT) (test code = ALT) 38 U/L 11-40 Alkaline Phos (test code = ALKP) 79 U/L 47-114 Total Bilirubin (test code = TBIL) 0.4 mg/dl 0.2-1.2 Direct Bilirubin (test code = DBIL) 0.2 mg/dl 0.0-0.3 Indirect Bilirubin (test cod e = IBIL) 0.2 mg/dl 0.0-1.1 ER [address]-[id number] 01:45:00* Test Item Value Reference Range Interpretation Comme nts Glucose (test code = GLU) 121 mg/dl 75-110 H BUN (test code = BUN) 13.0 mg/dl 6.0-17.0 Creatinine (test code = CREA) 0.7 mg/dl 0.4-1.2 Sodium (test code = NA) 145 mmol/l 137-145 Potassium (test code = K) 4.2 mmol/l 3.5-5.0 Chloride (test code = CL) 106 mmol/l 98-107 CO2 (test code = CO2) 24 mmol/l 22-30 Calcium (test code = CALC) 9.4 mg/dl 8.4-10.2 EGFR if (test code = EGFRAA) >60 mL/min/1.73m\\ S\\2 EGFR if Non- (test code = EGFRNA) >60 mL/min/1.73m\\ S\\2 Estimated Glomerular Filtration Rate (eGFR) Reference Intervals Decision Points for 18 years and older and average body mass: >= 60 Does not exclude kidney disease. 30 - 59 Suggests moderate chronic kidney disease and indicates the need for further investigation including assessment of proteinuria and cardiovascular factors. < 30 Usually indicates a need for referral for assessment and management of chronic kidney failure. ER [address]-LufkinTROPONIN-I [id number] 11:32:00* Test Item Value Reference Range Interpretation Comme nts Troponin-I (test code = TROP) <0.012 ng/ml 0.000-0.034 N The 99th Percent ile URL is 0.034 ng/mL. The Joint Society of Cardiology/[place] [employer] (ESC/ACC) and the National Academy of Clinical Biochemistry Standards of Laboratory Practices (NACB) recommends that the diagnosis of AMI includes the presence of clinical history suggestive of Acute Coronary Syndrome (ACS) and a maximum concentration of cardiac troponin exceeding the 99th percentile of a normal reference population [upper reference limit (URL)] on at least one occasion during the first 24 hours after the clinical event. [facility][note 3]-[id number] 11:15:00* Test Item Value Reference Range Interpretation Comme nts Glucose (test code = GLU) 123 mg/dl 75-110 H BUN (test code = BUN) 12.0 mg/dl 6.0-17.0 Creatinine (test code = CREA) 0.7 mg/dl 0.4-1.2 Sodium (test code = NA) 142 mmol/l 137-145 Potassium (test code = K) 4.5 mmol/l 3.5-5.0 Chloride (test code = CL) 107 mmol/l 98-107 CO2 (test code = CO2) 27 mmol/l 22-30 Calcium (test code = CALC) 9.4 mg/dl 8.4-10.2 T Protein (test code = TP) 6.8 gm/dl 5.1-8.7 Albumin (test code = ALB) 4.0 gm/dl 3.5-4.6 A/G Ratio (test code = AGRAT) 1.4 % 1.1-2.2 AST (SGOT) (test code = AST) 41 U/L 11-36 H ALT (SGPT) (test code = ALT) 52 U/L 11-40 H Alkaline Phos (test code = ALKP) 67 U/L 47-114 Total Bilirubin (test code = TBIL) 0.4 mg/dl 0.2-1.2 Globulin (test code = GLOBU) 2.8 gm/dl 2.3-3.5 Calcium, Corrected (test code = CALCCORR) 9.4 mg/dl 8.4-10.2 Various formulas exist for corrected serum calcium results, each yielding different values. This corrected result was based on the formula: Corrected Calcium = SerumCalcium + [0.8 * ( 4 - SerumAlbumin)] EGFR if (test code = EGFRAA) >60 mL/min/1.73m\\ S\\2 EGFR if Non- (test code = EGFRNA) >60 mL/min/1.73m\\ S\\2 Estimated Glomerular Filtration Rate (eGFR) Reference Intervals Decision Points for 18 years and older and average body mass: >= 60 Does not exclude kidney disease. 30 - 59 Suggests moderate chronic kidney disease and indicates the need for further investigation including assessment of proteinuria and cardiovascular factors. < 30 Usually indicates a need for referral for assessment and management of chronic kidney failure. [address]-[place]kin[place]IPASE, [id number] 11:15:00* Test Item Value Reference Range Interpretation Comme nts Lipase (test code = LIPA) 238 U/L 8-223 H er [address] [place] [address]-[place]IN[place] WITH [id number] 10:12:00 * Test Item Value Reference Range Interpretation Comme nts Color (test code = UCOLR) YELLOW Clarity (test code = UCLAR) CLEAR Glucose (test code = UGLUC) NEGATIVE NEGATIVE N Bilirubin (test code = UBILI) NEGATIVE NEGATIVE N Ketones (test code = UKET) NEGATIVE NEGATIVE N Specific [place] (test code = USPGR) 1.015 1.005-1.03 0 A Blood (test code = UBLD) NEGATIVE NEGATIVE N PH (test code = UPH) 7.0 4.5-8.0 A Protein (test code = UPROT) NEGATIVE NEGATIVE N Urobilinogen (test code = U UROB) 0.2 >0.2 N Nitrite (test code = UNITR) NEGATIVE NEGATIVE N Leukocyte Esterase (test cod e = ULEUK) NEGATIVE NEGATIVE N WBC (test code = WBCUR) 0-5 0-5 N RBC (test code = RBCUR) 0-5 0-5 N Epithial Cells (test code = U EPI) 0-10 0-10 N Mucous (test code = UMUC) Trace None Seen A Bacteria (test code = UBACT) 1+ None Seen,Trace A [address]-[place] [id number] 07:35:26er 9 Procedure: US GALLBLADDERExam Date: 02/11/2017 6:06 AMOrdering Provider: ASPEN MartinesinicalIndication: abdominal painComparison: NoneTechnique: Real- time ultrasonography was obtained over the right upper quadrantand medical billing representative images were recorded.Findings:There is a 1 cm gallstone in the expected region of the gallbladder neck. Thewall thickness is within normal limits however, the sonographic Dorantes sign isreportedly positive.The extrahepatic common duct is normal in size measuring 6 mm.The liver is normal in size and contour.There is normal echogenicity throughout the liver.There is no hepatic mass.There is no intrahepatic ductal dilatation.There is no ascites.Limited evaluation of the right kidney demonstrates no hydronephrosis.Visualized proximal pancreas are unremarkable .Impression:Cholelithiasis. No significant gallbladder wall thickening the sonographicMurphy sign was reportedly positive. If there is high clinical concern for acutecholecystitis, consider HIDA scan.This final report was electronically signed by Dr Yohannes Giron MD 02/11/20177:30 AMDictated By: RENATE GIRONKDate: 02/11/2017 07:35[facility] OF BUCKATUNNAXR ABD SERIES W/PA [id number] 07:01:22er 9Procedure: XR ABD SERIES W/PA CXRExam Date: 02/11/2017 6:07 AMOrdering Provider: ASPEN Martinesinical Indication: abdominal painComparison: NoneFindings:The lung volumes are low bilaterally. There is bilateral perihilar atelectasis.No pleural effusion or pneumothorax is present. Heart size isupper limits ofnormal.Abdomen views show non-obstructive bowel gas pattern. No pneumoperitoneum.Moderate volume stool burden.Impression:Bilaterally low lung volumes.Nonobstructive bowel gas pattern.This final report was electronically signed by Dr Yohannes Giron MD 02/11/20176:55 AMDictated By: Marychuy GIRONte: 02/11/2017 07:01[facility] OF BUCKATUNNALIPASE, [id number] 06:21:00* Test Item Value Reference Range Interpretation Comme nts Lipase (test code = LIPA) 89 U/L 8-[address]-[id number] 06:21:00* Test Item Value Reference Range Interpretation Comme nts Glucose (test code = GLU) 137 mg/dl 75-110 H BUN (test code = BUN) 15.0 mg/dl 6.0-17.0 Creatinine (test code = CREA) 0.8 mg/dl 0.4-1.2 Sodium (test code = NA) 140 mmol/l 137-145 Potassium (test code = K) 3.9 mmol/l 3.5-5.0 Chloride (test code = CL) 104 mmol/l 98-107 CO2 (test code = CO2) 28 mmol/l 22-30 Calcium (test code = CALC) 9.9 mg/dl 8.4-10.2 T Protein (test code = TP) 7.4 gm/dl 5.1-8.7 Albumin (test code = ALB) 4.2 gm/dl 3.5-4.6 A/G Ratio (test code = AGRAT) 1.3 % 1.1-2.2 AST (SGOT) (test code = AST) 27 U/L 11-36 ALT (SGPT) (test code = ALT) 44 U/L 11-40 H Alkaline Phos (test code = ALKP) 73 U/L 47-114 Total Bilirubin (test code = TBIL) 0.4 mg/dl 0.2-1.2 Globulin (test code = GLOBU) 3.2 gm/dl 2.3-3.5 Calcium, Corrected (test code = CALCCORR) 9.7 mg/dl 8.4-10.2 Various formulas exist for corrected serum calcium results, each yielding different values. This corrected result was based on the formula: Corrected Calcium = SerumCalcium + [0.8 * ( 4 - SerumAlbumin)] EGFR if (test code = EGFRAA) >60 mL/min/1.73m\\ S\\2 EGFR if Non- (test code = EGFRNA) >60 mL/min/1.73m\\ S\\2 Estimated Glomerular Filtration Rate (eGFR) Reference Intervals Decision Points for 18 years and older and average body mass: >= 60 Does not exclude kidney disease. 30 - 59 Suggests moderate chronic kidney disease and indicates the need for further investigation including assessment of proteinuria and cardiovascular factors. < 30 Usually indicates a need for referral for assessment and management of chronic kidney failure. er [address] [place] [address] WITH AUTO [id number] 06:02:00* Test Item Value Reference Range Interpretation Comme nts WBC (test code = WBC) 11.68 10\\S\\3/ul 4.80-10.80 H RBC (test code = RBC) 4.17 10\\S\\6/ul 4.20-5.40 L Hemoglobin (test code = HGB) 12.9 gm/dl 12.0-14.0 Hematocrit (test code = HCT) 38.4 % 37.0-47.0 MCV (test code = MCV) 92.1 fL 81.0-99.0 MCH (test code = MCH) 30.9 pg 27.0-31.0 MCHC (test code = MCHC) 33.6 gm/dl 33.0-37.0 RDW (test code = RDWVC) 13.1 % 11.5-14.5 Platelet (test code = PLT) 262 10\\S\\3/ul 130-400 MPV (test code = MPV) 9.2 fL 7.4-10.4 A "NOT MEASURED" RESULTS ARE DISPLAYED WHEN THE INSTRUMENT HAS A SUPPRESSED OR UNREPORTABLE RESULT. THIS WILL MOST OFTEN HAPPEN WITH THE MPV WHEN THERE IS AN ABNORMAL PLATELET DISTRIBUTION DUE TO A CRITICAL LOW VALUE OR PLATELET CLUMPING. THE RDW MAY BE SUPPRESSED IF THERE ARE MULTIPLE PEAKS PRESENT ON THE RBC HISTOGRAM. IN THIS CASE, A MANUAL REVIEW OF THE SLIDE WILL BE PERFORMED, AND RBC MORPHOLOGY WILL BE NOTED ON THE REPORT. NE% (test code = NE) 77.6 % 42.0-75.0 H LY% (test code = LY) 16.5 % 13.0-42.0 MO% (test code = MO) 4.3 % 4.0-14.0 EO% (test code = EO) 0.9 % 1.0-3.0 L BA% (test code = BA) 0.3 % 1.0-3.0 L IG% (test code = IG%) 0.4 % 0.0-0.[address] [place] [address] History and Physical Notes Date/Time Note Provider Source 2022-12-19 18:07:00 Yanna Law MD: PERFORM, MODIFY, MODIFY, MODIFYEvent Display: History and PhysicalAuthored Date: [id number] and Physical Primary Team Name:Team Contact Info:PCP Contact info:Family contact info: Code Status: None Specified=FULL CODE Chief Complaint: "SOB for months, been in a rehab, I just need an inhaler." pt states she normally takes alb inhaler. 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 Reports having dyspnea for months after running out of her albuterol inhaler. Patient originally came to the ER for inhaler. No cold/flu/viral symptoms. No chest pain, palpitations. Patient reports occasional lightheadedness. Patient poor historian. Patient found to be in A-fib with RVR. Currently on diltiazem gtt. Review of Systems: Review of Systems Constitutional: No unexpected weight loss/gain; no weakness/fatigue; no night sweats; no loss of appetiteHEENT: no headache; no change in vision or hearing; no neck swelling or difficulty swallowing; no nasal congestion or rhinnorhea; no sore throat or hoarsenessRespiratory: + Per HPICV: no chest pain or palpitations; no light-headedness no LE swelling; no decrease in exercise tolerance or orthopnea GI: no n/v/d, no constipation Genitourinary: no dysuria, polyuria, hematuria; no flank pain Heme: no bleeding or bruisingEndocrine: no heat/cold intolerance no polyuria or excessive thirstMSK: no muscular or joint painIntegumentary: no rash Neuro: no focal weakness or changes in sensation; baseline cognition; normal gait Psychiatric: no anxiety or depression Problem List/Past Medical History: Per HPI Procedure/Surgical History: Buyer Assistant surgery Family History: No DC, CVA, cancer Social History: Alcohol Never Electronic Cigarette/Vaping Electronic Cigarette Use: Never. Substance Abuse Use: Past. Type: Methamphetamines. Tobacco Use: Unknown if ever smoked. Tobacco smoke exposure: None. Did the Patient Smoke Cigarettes Anytime During the Last 365 Days? No. Cessation Counseling Provided? No. Past methamphetamine use per HPI Allergies: penicillin Home Medications: lisinopril, 20 mg, PO, Daily Physical Exam: Vitals and Measurements T: 97.8 F (Oral) TMIN: 97.8 F (Oral) TMAX: 98.3 F (Oral) HR: 105 (Apical) RR: 14 BP: 115/87 SpO2: 94% WT: 92.4 kg BMI: 36.08 Physical Exam: General: no acute distressEyes: pupils equal and reactive; sclerae anicteric; conjunctivae and lids without lesionsEars/Nose/Mouth/Throat: moist mucous membranes; normal dentitionCardiovascular: regular rate and rhythm; no S3/S4/murmur; no LE edemaRespiratory: CTAB; no retractions /accessory muscle useGastrointestinal: soft, nontender, nondistended; no hernias appreciated; normoactive bowel soundsGenitourinary: deferredMusculoskeletal: normal range of motion to all extremities; normal muscle strength without myoclonusSkin: warm and dry; no rash noted; no palpable cutaneous lesions appreciatedNeurologic: eyes open spontaneously; follows commands; CN grossly intact Psychiatric: alert and oriented x 3; appropriate mood and affect; good judgement Pertinent Labs: Labs reviewed. Unremarkable. Pertinent Imaging: A-fib with RVR on telemetry. Assessment/Plan: Atrial flutter with RVR 1. Atrial flutter with rapid ventricular response (I48.92) -Metoprolol 5 mg IV x1- Diltiazem gtt.-Heparin GTT-Cardiology ([place]) on consult Chronic medical problems: HTN-Continue home med per below Medications (7) ActiveScheduled: (1)lisinopril 20 mg, PO, DailyContinuous: (2)diltiazem INJ 125 mg + sodium chloride 0.9% INJ 100 mL 125 mg 25 mL, IVheparin 25,000 unit in 1/2 NS 500 mL 25,000 unit [14 unit/kg/hr] + Premix Diluent Sodium Chloride 0 500 mL, IV, 19.15 ml/hrPRN: (4)acetaminophen 325 mg TABLET 650 mg 2 tab, PO, [id number] 250 ml INJ 250 mL, IV, [id number] 250 ml INJ 125 mL, IV, PRNglucagon recombinant 1 mg PDR 1 mg, IM, PRN Cardiac diet Prophylaxis - AC per above Disposition Inpatient admissionBaYanna clark MDElectronically Signed: 12/18/22 07:53 [facility] Notes Date/Time Note Provider Source Category Description 08-Sep-2024 08:4 9 Vitals Temp 97.9 F Pulse 69 Resp 20 BP 171/85 Pain Score 8 Numeric chest, right MEAN ART BP* 114 O2 Sat%,PulseOx 96.0% Ht 63 in Wt 89.6 kgs BMI* 34.9 BSA* 1.[facility]2024-09-08 12:59:11 Category Description 08-Sep-2024 08:4 9 Vitals Temp 97.9 F Pulse 69 Resp 20 BP 171/85 Pain Score 8 Numeric chest, right MEAN ART BP* 114 O2 Sat%,PulseOx 96.0% Ht 63 in Wt 89.6 kgs BMI* 34.9 BSA* 1.92 [facility]2024-09-08 09:12:09Click the link below to view your note:[facility] ([facility])2024-09-08 08:52:35Click the link below to view your note:[facility] ([facility])2022-12-17 14:10:34* Radiation Dose CTDIVOL = 0 (mGy): DLP = 643.5 (mGy-cm) PROCEDURE INFORMATION: Exam: CTA Chest With Contrast Exam date and time: 12/17/2022 2:26 PM Age: 67 years old Clinical indication: /sob elevated dimer TECHNIQUE: Imaging protocol: Computed tomographic angiography of the chest with contrast. Exam focused on the arteries. 3D rendering (Not supervised by radiologist): MIP and/or 3D reconstructed images were created by the technologist. Radiation optimization: All CT scans at this facility use at least one of these dose optimization techniques: automated exposure control; mA and/or kV adjustment per patient size (includes targeted exams where dose is matched to clinical indication); or iterative reconstruction. Contrast material: OMNI 350; Contrast volume: 100 ml; Contrast route: INTRAVENOUS (IV); REPORTING DATA: Count of CT and Cardiac NM exams in prior 12 months: This patient has received 0 known CTs and 0 known cardiac nuclear medicine studies in the 12 months prior to the current study. COMPARISON: CR CHEST 1VIEW DX 12/17/2022 1:15 PM RADIATION DOSE METRICS: Total DLP (mGy-cm): 643.5 FINDINGS: Pulmonary arteries: No central or segmental pulmonary emboli are noted. Great vessels off aortic arch: Aberrant right subclavian artery as a benign anatomic variant. Aorta: No signs of thoracic aortic aneurysm or dissection. Lungs: No pulmonary edema or consolidation. Mild bilateral subpleural subsegmental atelectasis. Pleural spaces: No pneumothorax. No pleural effusion. Heart: Borderline size heart with mild concentric left ventricular hypertrophy. No signs of intracardiac thrombus or ventricular aneurysm. Windsock left atrial appendage without thrombus. No pericardial thickening or effusion. Lymph nodes: No thoracic adenopathy. Intraperitoneal space: No acute upper abdominal findings along the visualized segments. Bones/joints: No destructive bone lesions. Soft tissues: Unremarkable. IMPRESSION: 1. No central or segmental pulmonary emboli. 2. No signs of thoracic aortic aneurysm or dissection. 3. Borderline size heart with mild concentric left ventricular hypertrophy. 4. Aberrant right subclavian artery. 5. No pulmonary edema or consolidation. 6. No acute upper abdominal findings. Jeyson Oshea MD On 12/17/2022 15:30:09; [id number] 13:14:00* PROCEDURE INFORMATION: Exam: XR Chest Exam date and time: 12/17/2022 1:15 PM Age: 67 years old Clinical indication: /tachycardia, SOB TECHNIQUE: Imaging protocol: Radiologic exam of the chest. Views: 1 view. COMPARISON: No relevant prior studies available. FINDINGS: Lungs: Lungs are clear without focal consolidation. Pleural spaces: No pleural effusion. No pneumothorax. Heart/Mediastinum: Cardiomediastinal contours are within normal limits. Bones/joints: No acute osseous abnormality. IMPRESSION: No acute radiographic abnormality of the chest. Tiffanie Vee MD On 12/17/2022 13:54:24; [id number] 12:45:00 Discharge Instructions IV Removed Date 07/06/2018 Discharge Diagnosis gallbladder attack/ removal Physician Name for Follow Up Appt #1 [facility] IN 1 WEEK Physician Name for Follow Up Appt #2 [facility] 1 WEEK OFFICE IS CLOSED AT THIS TIME PLEASES CALL AND SCHEDULE FOLLOW UP IN 1 WEEK [phone] Referral Required None Activity Level As tolerated, unrestricted Medications Continue Present Medications Diet NO SALT ADDED DIET EDUCATION PROVIDED AT DISCHARGE Other Discharge Instructions Patient education provided Follow Up Care Yes Patient To Schedule Readmission Risk (LACE Score) 2 Written Discharge Plan given to the Patient at the time of discharge contains: Reason for hospitalization Discharge medications including what medications to take, how to take them, and how to obtain the medication. Patient / family / caregiver given instructions on what to do if their condition changes. Pneumonia Vaccine Refused By Patient Influenza Vaccine NOT Given, State Reason(s) Below: [facility])2017-01-18 03:15:00 Discharge Instructions 2 Discharge Diagnosis R. Arm pain;R Arm cellulitis Important Information Consult your physician or return to the Emergency Department immediately if worse, if not better asexpected, or if any problems arise. Follow Up Care Yes Important Information Please understand that you have received care only on an emergency basis. If your condition does not improve, you should call your personal physician for follow-up care. If you do not have a physician, you may call the referred physician listed. If you have questions about your care or these discharge instructions, you may call the Emergency Department. Please take your discharge paperwork with you to any follow-up appointments. Follow-Up With: Primary Care Physician Activity Level As tolerated, unrestricted Diet Regular Prescriptions Given Via: Printed and given to patient/caregiver. Patient Teaching Patient education [facility] ([facility])
[2024-10-30] MEDS ORDERED: NA CHLORIDE 0.9% 500 ML ONE (00:26)
[2024-10-30 00:38] LABS: Absolute Lymphocytes (CBC) 2.7 K/uL (0.7-4.9); Hematocrit 39.4 % (36.0-45.0); Hemoglobin 13.5 g/dL (12.0-15.0); MCH 30.6 pg (27.0-35.0); MCHC 34.3 g/dL (32.0-36.0); MCV 89.1 fL (80-100); MPV 8.9 fL (7.6-11.3); Nucleated RBC Absolute Count 0.0 (0-0); Nucleated Red Blood Cells % 0.2 % (0-0); RBC Red Blood Cell Count 4.42 M/uL (3.86-4.86); White Blood Count 8.10 thou/uL (4.3-10.9)
[2024-10-30 00:56] LABS: ALT/SGPT 48 U/L (13-56); AST/SGOT 22 U/L (15-37); Albumin 3.7 g/dL (3.4-5.0); Albumin/Globulin Ratio 1.1 (1.1-1.8); Alkaline Phosphatase 78 U/L (45-117); Anion Gap 6.7 mEq/L (5.0-15.0); BUN Blood Urea Nitrogen 10 mg/dL (7-18); Globulin 3.3 g/dL (2.3-3.5); Glucose Level 99 mg/dL (74-106); Magnesium 2.1 mg/dL (1.6-2.4); NT PRO-BNP 1144 pg/mL (<125); Potassium 3.7 mEq/L (3.5-5.1); Troponin High Sensitivity 7.5 pg/mL (<58.9)
[2024-10-30 00:57] LABS: Bilirubin Indirect, Calculated 0.3 mg/dL (0.2-0.8)
[2024-10-30 00:58] LABS: PT Prothrombin Time 11.9 SECONDS (10-13.0); Protime INR 1.05
--- NOTE | 2024-10-30 01:24 | ER ---
Nurse's Notes [facility] Name: Kayla Valerio Age: 69 yrs Sex: Female : 1955 Arrival Date: 10/29/2024 Time: 22:24 Bed 13 Private MD: Diagnosis: Essential (primary) hypertension;Bradycardia, unspecified;Dyspnea Presentation: 10/29 22:46 Chief complaint: Patient states: High BP beginning tonight. denies symptoms. lg3 Coronavirus screen: Client denies travel out of the [place] in the last 14 days. At this time, the client does not indicate any symptoms associated with coronavirus-19. Ebola Screen: No symptoms or risks identified at this time. Initial Sepsis Screen: Does the patient meet any 2 criteria? No. Patient's initial sepsis screen is negative. Does the patient have a suspected source of infection? No. Patient's initial sepsis screen is negative. Risk Assessment: Do you want to hurt yourself or someone else? Patient reports no desire to harm self or others. Onset of symptoms was October 29, 2024. 22:46 Method Of Arrival: Ambulatory lg3 22:46 Acuity: SHAYY 3 lg3 Triage Assessment: 22:46 General: Appears in no apparent distress. comfortable, Behavior is calm, cooperative. lg3 Pain: Denies pain. EENT: No deficits noted. No signs and/or symptoms were reported regarding the EENT system. Neuro: No deficits noted. Brown Agitation-Sedation Scale (RASS): 0 - Alert and Calm Level of Consciousness is awake, alert, obeys commands, Oriented to person, place, time, situation. Cardiovascular: No deficits noted. Denies chest pain, shortness of breath, Capillary refill < 3 seconds Clubbing of nail beds is absent JVD is absent Patient's skin is warm and dry. Respiratory: No deficits noted. Airway is patent Respiratory effort is even, unlabored, Respiratory pattern is regular, symmetrical. GI: No deficits noted. No signs and/or symptoms were reported involving the gastrointestinal system. : No signs and/or symptoms were reported regarding the genitourinary system. Derm: No deficits noted. No signs and/or symptoms reported regarding the dermatologic system. Skin is intact, is healthy with good turgor, Skin is dry, Skin is normal, Skin temperature is warm. Musculoskeletal: No deficits noted. No signs and/or symptoms reported regarding the musculoskeletal system. Circulation, motion, and sensation intact. Range of motion: intact in all extremities. Historical: - Allergies: 22:48 Penicillins; lg3 22:48 Tetanus Vaccines and Toxoid; lg3 - Home Meds: 22:48 citalopram 20 mg tablet [Active]; diltiazem HCl 180 mg Oral Capsule, ER 24 hr [Active]; lg3 metoprolol tartrate 50 mg Oral tablet [Active]; gabapentin 100 mg oral capsule [Active]; - PMHx: 22:48 Hypertensive disorder; AFIB; sciatica; lg3 - PSHx: 22:52 section; lg3 - Immunization history:: Adult Immunizations up to date. - Infectious Disease History:: Denies. - Social history:: Smoking status: Patient denies any tobacco usage or history of. Patient/guardian denies using alcohol, street drugs. - Family history:: not pertinent. Screenin/26 00:20 [facility] ED Fall Risk Assessment (Adult) History of falling in the last 3 months, kt5 including since admission No falls in past 3 months (0 pts) Confusion or Disorientation No (0 pts) Intoxicated or Sedated No (0 pts) Impaired Gait No (0 pts) Mobility Assist Device Used No (0 pt) Altered Elimination No (0 pt) Score/Fall Risk Level 0 - 2 = Low Risk. [facility] ED Fall Risk Assessment (Adult) Score/Fall Risk Level 0 - 2 = Low Risk Oriented to surroundings, Maintained a safe environment. Abuse screen: Denies threats or abuse. Denies injuries from another. Nutritional screening: No deficits noted. Tuberculosis screening: No symptoms or risk factors identified. Assessment: 00:20 General: Appears in no apparent distress. comfortable, Behavior is calm, cooperative, kt5 appropriate for age. Pain: Denies pain. Neuro: No deficits noted. Brown Agitation-Sedation Scale (RASS): 0 - Alert and Calm Level of Consciousness is awake, alert, obeys commands, Oriented to person, place, time. Cardiovascular: No deficits noted. Reports None Denies chest pain, Heart tones S1 S2 present Capillary refill < 3 seconds is brisk Clubbing of nail beds is absent JVD is absent Pulses are all present. Edema is absent. Respiratory: No deficits noted. Airway is patent Trachea midline Respiratory effort is even, unlabored, Respiratory pattern is regular, symmetrical. GI: No deficits noted. No signs and/or symptoms were reported involving the gastrointestinal system. Abdomen is flat, non-distended, Bowel sounds present X 4 quads. Abd is soft and non tender X 4 quads. : No deficits noted. No signs and/or symptoms were reported regarding the genitourinary system. EENT: No deficits noted. No signs and/or symptoms were reported regarding the EENT system. Derm: No deficits noted. No signs and/or symptoms reported regarding the dermatologic system. Skin is intact, is healthy with good turgor, Skin is dry, Skin is pink, warm \T\ dry. normal, Skin temperature is warm. Musculoskeletal: No deficits noted. No signs and/or symptoms reported regarding the musculoskeletal system. 01:13 Reassessment: Patient appears in no apparent distress at this time. No changes from kt5 previously documented assessment. Patient is alert, oriented x 3, equal unlabored respirations, skin warm/dry/pink. Patient denies pain at this time. Patient states feeling better. Patient states symptoms have improved. 02:05 Reassessment: Patient appears in no apparent distress at this time. Patient denies pain kt5 at this time. Patient states feeling better. Patient states symptoms have improved. Vital Signs: 10/29 22:46 BP 178 / 83; Pulse 48; Resp 16 S; Temp 98.1(O); Pulse Ox 97% on R/A; Weight 81.65 kg lg3 (R); Height 5 ft. 3 in. (R); Pain 0/10; 10/30 00:20 BP 179 / 91; Pulse 49; Resp 18 S; Pulse Ox 96% on R/A; kt5 00:40 BP 193 / 97; Pulse 51; Resp 18 S; Pulse Ox 95% on R/A; kt5 02:05 BP 177 / 105; Pulse 52; Resp 18 S; Pulse Ox 99% on R/A; kt5 02:40 BP 169 / 81; Pulse 53; Resp 18; Pulse Ox 99% ; kt5 10/29 22:46 Body Mass Index 31.89 (81.65 kg, 160.02 cm) 3 10/29 22:46 Pain Scale: Adult lg3 Omi Coma Score: 10/29 23:51 Eye Response: spontaneous(4). Motor Response: obeys commands(6). Verbal Response: mejia oriented(5). Total: 15. ED Course: 22:29 Patient arrived in ED. gm2 22:34 Tho Goyal MD is Attending Physician. mejia 22:48 Triage completed. lg3 22:52 Arm band placed on right wrist. lg3 23:00 XRAY Chest (1 view) In Process Unspecified. EDMS 10/30 00:08 Stacia Armendariz, RN is Primary Nurse. kt5 00:19 Magnesium Sent. kt5 00:19 Basic Metabolic Panel Sent. kt5 00:19 CBC with Diff Sent. kt5 00:19 LFT's Sent. kt5 00:19 NT PRO-BNP Sent. kt5 00:19 PT-INR Sent. kt5 00:20 Patient has correct armband on for positive identification. Placed in gown. Bed in low kt5 position. Call light in reach. Side rails up X 1. Client placed on continuous cardiac and pulse oximetry monitoring. NIBP monitoring applied. electronic device monitor on. Door closed. Noise minimized. Warm blanket given. Pillow given. 00:20 Troponin HS Sent. kt5 00:20 Inserted saline lock: 18 gauge in left antecubital area, using aseptic technique. Blood kt5 collected. Flushed with 10 mL NS. 01:23 Ramón Barroso MD is Referral Physician. mejia 02:08 IV discontinued, intact, bleeding controlled, No redness/swelling at site. Pressure kt5 dressing applied. 03:25 No provider procedures requiring assistance completed. kt5 Administered Medications: 00:40 Drug: NS 0.9% IV 500 ml 500 ml IV at 1 bolus once; to be given as a bolus over 30 kt5 minutes Volume: 500 ml; Route: IV; Rate: 1 bolus; Site: left antecubital; 02:09 Follow up: Response: No adverse reaction; IV Status: Infusion continued; IV Intake: kt5 500ml 01:26 Drug: Lisinopril PO 20 mg PO once Route: PO; kt5 02:10 Follow up: Response: No adverse reaction; Blood pressure is unchanged kt5 Medication: 00:20 VIS not applicable for this client. kt5 Intake: 02:09 IV: 500ml; Total: 500ml. kt5 Outcome: :23 Discharge ordered by . mejia 02:40 Discharged to home ambulatory, kt5 02:40 Condition: improved 02:40 Discharge instructions given to patient, Instructed on discharge instructions, follow up and referral plans. Demonstrated understanding of instructions, follow-up care, Prescriptions given X 1, 03:25 Patient left the ED. kt5 Signatures: Dispatcher [employer] EDTho Seals MD MD cha Able, Lacie, RN RN lg3 Paola Monsivais gm2 Stacia Armendariz RN RN kt5 Corrections: (The following items were deleted from the chart) 10/29 22:51 22:46 BP 187 / 87; Pulse 48bpm; Resp 16bpm; Spontaneous; Pulse Ox 97% RA; Temp 98.1F lg3 Oral; 81.65 kg Reported; Height 5 ft. 3 in. Reported; BMI: 31.8; Pain 0/10, Adult; lg3 10/30 02:07 01:13 Reassessment: Patient appears in no apparent distress at this time. No changes kt5 from previously documented assessment. Patient is alert, oriented x 3, equal unlabored respirations, skin warm/dry/pink. Patient denies pain at this time. Patient states feeling better. Patient states symptoms have improved. kt5
--- NOTE | 2024-10-30 01:24 | EDPHYS ---
Physician Documentation [facility] Name: Kayla Valerio Age: 69 yrs Sex: Female : 1955 Arrival Date: 10/29/2024 Time: 22:24 Bed 13 Private MD: ED Physician Tho Goyal HPI: 10/29 23:50 This 69 yrs old Female presents to ER via Ambulatory with complaints of High mejia Blood Pressure, brought from [facility]. 23:50 The patient has elevated blood pressure and discovered this at home, with a home mejia device. Onset: The symptoms/episode began/occurred just prior to arrival. Modifying factors: The symptoms are aggravated by activity, movement, The symptoms are alleviated by remaining still. Associated signs and symptoms: Pertinent positives: dyspnea. Severity of symptoms: At its worst the blood pressure was moderate, in the emergency department the blood pressure is improved, mildly. The patient has experienced similar episodes in the past, multiple times. Historical: - Allergies: 22:48 Penicillins; lg3 22:48 Tetanus Vaccines and Toxoid; lg3 - Home Meds: 22:48 citalopram 20 mg tablet [Active]; diltiazem HCl 180 mg Oral Capsule, ER 24 hr [Active]; lg3 metoprolol tartrate 50 mg Oral tablet [Active]; gabapentin 100 mg oral capsule [Active]; - PMHx: 22:48 Hypertensive disorder; AFIB; sciatica; lg3 - PSHx: 22:52 section; lg3 - Immunization history:: Adult Immunizations up to date. - Infectious Disease History:: Denies. - Social history:: Smoking status: Patient denies any tobacco usage or history of. Patient/guardian denies using alcohol, street drugs. - Family history:: not pertinent. ROS: 23:50 Constitutional: Negative for fever, chills, and weight loss, Eyes: Negative for injury, mejia pain, redness, and discharge, ENT: Negative for injury, pain, and discharge, Neck: Negative for injury, pain, and swelling, Cardiovascular: Negative for chest pain, palpitations, and edema, Abdomen/GI: Negative for abdominal pain, nausea, vomiting, diarrhea, and constipation, Back: Negative for injury and pain, : Negative for injury, bleeding, discharge, and swelling, MS/Extremity: Negative for injury and deformity, Skin: Negative for injury, rash, and discoloration, Neuro: Negative for headache, weakness, numbness, tingling, and seizure, Psych: Negative for depression, anxiety, suicide ideation, homicidal ideation, and hallucinations, Allergy/Immunology: Negative for hives, rash, and allergies, Endocrine: Negative for neck swelling, polydipsia, polyuria, polyphagia, and marked weight changes, Hematologic/Lymphatic: Negative for swollen nodes, abnormal bleeding, and unusual bruising, 23:50 Respiratory: Positive for shortness of breath, at rest. Exam: 23:51 Constitutional: This is a well developed, well nourished patient who is awake, alert, mejia and in no acute distress. Head/Face: Normocephalic, atraumatic. Eyes: Pupils equal round and reactive to light, extra-ocular motions intact. Lids and lashes normal. Conjunctiva and sclera are non-icteric and not injected. Cornea within normal limits. Periorbital areas with no swelling, redness, or edema. ENT: Nares patent. No nasal discharge, no septal abnormalities noted. Tympanic membranes are normal and external auditory canals are clear. Oropharynx with no redness, swelling, or masses, exudates, or evidence of obstruction, uvula midline. Mucous membranes moist. Neck: Trachea midline, no thyromegaly or masses palpated, and no cervical lymphadenopathy. Supple, full range of motion without nuchal rigidity, or vertebral point tenderness. No Meningismus. Chest/axilla: Normal chest wall appearance and motion. Nontender with no deformity. No lesions are appreciated. Cardiovascular: Regular rate and rhythm with a normal S1 and S2. No gallops, murmurs, or rubs. Normal PMI, no JVD. No pulse deficits. Abdomen/GI: Soft, non-tender, with normal bowel sounds. No distension or tympany. No guarding or rebound. No evidence of tenderness throughout. Back: No spinal tenderness. No costovertebral tenderness. Full range of motion. Female : Normal external genitalia. Skin: Warm, dry with normal turgor. Normal color with no rashes, no lesions, and no evidence of cellulitis. MS/ Extremity: Pulses equal, no cyanosis. Neurovascular intact. Full, normal range of motion., bilateral aka Neuro: Awake and alert, GCS 15, oriented to person, place, time, and situation. Cranial nerves II-XII grossly intact. Motor strength 5/5 in all extremities. Sensory grossly intact. Cerebellar exam normal. Normal gait. Psych: Awake, alert, with orientation to person, place and time. Behavior, mood, and affect are within normal limits. 23:51 ECG was reviewed by the Attending Physician. 23:51 Respiratory: the patient does not display signs of respiratory distress, Respirations: normal, Breath sounds: are clear throughout, no bronchial sounds, no decreased breath sounds, no rales, rhonchi, no stridor, no wheezing, Respiratory rate: 16 23:51 Musculoskeletal/extremity: ROM: no acute changes, intact in all extremities, full active range of motion, full passive range of motion, Circulation is intact in all extremities. Sensation intact. Compartment Syndrome exam of affected extremity: is normal. no pain, no numbness, no tingling, no sensation deficit, no palor, no weak pulses, Weight bearing: able to fully bear weight, DVT Exam: No signs of deep vein thrombosis. no pain, no swelling, no tenderness, negative Homans' sign noted on exam, no appreciated bluish discoloration, no erythema, no increased warmth, 10/30 00:51 ECG was reviewed by the Attending Physician. mejia Vital Signs: 10/29 22:46 BP 178 / 83; Pulse 48; Resp 16 S; Temp 98.1(O); Pulse Ox 97% on R/A; Weight 81.65 kg lg3 (R); Height 5 ft. 3 in. (R); Pain 0/10; 10/30 00:20 BP 179 / 91; Pulse 49; Resp 18 S; Pulse Ox 96% on R/A; kt5 00:40 BP 193 / 97; Pulse 51; Resp 18 S; Pulse Ox 95% on R/A; kt5 02:05 BP 177 / 105; Pulse 52; Resp 18 S; Pulse Ox 99% on R/A; kt5 02:40 BP 169 / 81; Pulse 53; Resp 18; Pulse Ox 99% ; kt5 10/29 22:46 Body Mass Index 31.89 (81.65 kg, 160.02 cm) lg3 10/29 22:46 Pain Scale: Adult lg3 [place] Coma Score: 10/29 23:51 Eye Response: spontaneous(4). Motor Response: obeys commands(6). Verbal Response: mejia oriented(5). Total: 15. MDM: 22:34 Medical Screening Exam initiated mejia 23:53 Differential diagnosis: hypertensive crisis, Malignant HTN. Data reviewed: vital signs, [facility] nurses notes, lab test result(s), EKG, radiologic studies, plain films. Consideration of Admission/Observation Patient was admitted/placed on observation. Escalation of care including admission/observation considered. I considered the following discharge prescriptions or medication management in the emergency department Medications were administered in the Emergency Department. See MAR. Independent interpretation of the following test(s) in the Emergency Department EKG: See my EKG interpretation above. Test considered but Not performed: Ultrasound NO 2 D ECHO. Historians other than the Patient: PT WELL INFORMED. Care significantly affected by the following chronic conditions: Hypertension, Obesity, AV FIB , SCIATICA. Counseling: I had a detailed discussion with the patient and/or guardian regarding the historical points, exam findings, and any diagnostic results supporting the discharge/admit diagnosis, lab results, radiology results, the need for outpatient follow up, for definitive care, a stadium attendant, a family practitioner. 10/29 21:35 Order name: Basic Metabolic Panel; Complete Time: 01:06 [facility] 10/29 21:35 Order name: CBC with Diff; Complete Time: 00:51 10/29:35 Order name: LFT's; Complete Time: 01:06 10/29:35 Order name: Magnesium; Complete Time: 01:06 10/29:35 Order name: NT PRO-BNP; Complete Time: 01:06 10/29:35 Order name: PT-INR; Complete Time: 01:06 10/29:35 Order name: Troponin HS; Complete Time: 01:06 [facility] 10/29 21:35 Order name: UA Rfx Arvin Cult if indicated 10/29:35 Order name: UDS 10/29:35 Order name: XRAY Chest (1 view) 10/29:35 Order name: Cardiac monitoring; Complete Time: 00:20 [facility] 10/29 21:35 Order name: EKG - Nurse/Tech; Complete Time: 00:40 [facility] 10/29 21:35 Order name: IV Saline Lock; Complete Time: 00:20 [facility] 10/29 21:35 Order name: Labs collected and sent; Complete Time: 00:20 [facility] 10/29 22:35 Order name: O2 Per Protocol [facility] 10/29 22:35 Order name: O2 Sat Monitoring; Complete Time: 00:40 [facility] EC/26 00:51 Rate is 50 beats/min. Rhythm is regular. QRS [place] is Normal. UT interval is normal. QRS mejia interval is normal. QT interval is normal. No Q waves. T waves are Normal. No ST changes noted. Clinical impression: Sinus bradycardia. Interpreted by me. Reviewed by me. Administered Medications: 00:40 Drug: NS 0.9% IV 500 ml 500 ml IV at 1 bolus once; to be given as a bolus over 30 kt5 minutes Volume: 500 ml; Route: IV; Rate: 1 bolus; Site: left antecubital; 02:09 Follow up: Response: No adverse reaction; IV Status: Infusion continued; IV Intake: kt5 500ml 01:26 Drug: Lisinopril PO 20 mg PO once Route: PO; kt5 02:10 Follow up: Response: No adverse reaction; Blood pressure is unchanged kt5 Disposition Summary: 10/30/24 01:23 Discharge Ordered Notes: Location: Home mejia Problem: new mejia Symptoms: have improved mejia Condition: Stable mejia Diagnosis - Essential (primary) hypertension mejia - Bradycardia, unspecified mejia - Dyspnea mejia Followup: mejia - With: Private Physician - When: 2 - 3 days - Reason: Recheck today's complaints, Continuance of care, Re-evaluation by your physician Followup: mejia - With: Ramón Barroso MD - When: 2 - 3 days - Reason: Recheck today's complaints, Re-evaluation by your physician Discharge Instructions: - Discharge Summary Sheet mejia - Bradycardia, Adult mejia - Hypertension, Adult mejia - Shortness of Breath, Adult mejia - Shortness of Breath, Adult, [id number] mejia - Fluid Restriction mejia - Hypertension, Adult, [id number] mejia - How to Take Your Blood Pressure, [id number] mejia - Aspirin and Your Heart mejia - Managing Your Hypertension mejia - Low-Sodium Eating Plan mejia Forms: - Medication Reconciliation Form mejia - Antibiotic Education mejia - Prescription Opioid Use mejia - Patient Portal Instructions mejia - Leadership Thank You Letter mejia Prescriptions: - Lisinopril 10 mg Oral Tablet - take 1 tablet ORAL route once daily; 20 tablet; Refills: 0, Product Selection mejia Permitted Signatures: Dispatcher [employer] EDMS Tho Goyal MD MD cha Able, Lacie, RN RN lg3 Stacia Armendariz, RN RN kt5 Corrections: (The following items were deleted from the chart) 10/29 22:36 22:36 BASIC METABOLIC PANEL+C.LAB.BRZ ordered. EDMS EDMS 22:36 22:36 CBC+H.LAB.BRZ ordered. EDMS EDMS 22:36 22:36 HEPATIC FUNCTION+C.LAB.BRZ ordered. EDMS EDMS 22:36 22:36 MAGNESIUM+C.LAB.BRZ ordered. EDMS EDMS 22:36 22:36 PROBNP+C.LAB.BRZ ordered. EDMS EDMS 22:36 22:36 PROTIME (+INR)+COAG.LAB.BRZ ordered. EDMS EDMS 22:36 22:36 Troponin High Sensitivity+C.LAB.BRZ ordered. EDMS EDMS 22:36 22:36 UA Rfx Arvin Cult if indicated+U.LAB.BRZ ordered. EDMS EDMS 22:36 22:36 URINE DRUG SCREEN+UC.LAB.BRZ ordered. EDMS EDMS 22:36 22:36 Chest Single View+RAD.RAD.BRZ ordered. EDMS EDMS
[2024-10-30 01:41] LABS: Urine Microscopic Reflex YN NO UMIC
[2024-10-30 01:52] LABS: METHAMPHETAM NEGATIVE (NEGATIVE); THC Cannibis NEGATIVE (NEGATIVE)
--- NOTE | 2024-10-30 05:36 | RAD REPORT ---
EXAM DESCRIPTION: Chest Single View CLINICAL HISTORY: 69 years Female COUGH COMPARISON: None TECHNIQUE: AP view of the chest was obtained. FINDINGS: Cardiac silhouette is enlarged. Central vessels are moderately increased. No effusions bilaterally. Streaky perihilar and infrahilar airspace opacities. No consolidation. No p neumothorax. IMPRESSION: Enlarged heart with moderate central congestion. Bilateral perihilar and infrahilar infiltrate and at electatic change. Electronically signed by: Maria Victoria Hunter MD 10/29/2024 11:20 PM CDT RP Due to temporary technical issues with the PACS/[employer] reporting system, reports are being ana maria d by the in-house radiologist without review as a courtesy to ensure prompt reporting the interpreting radiologist is fully responsible for the content of the report. Transcribed Date/Time: 10/30/2024 5:35 AM
[2024-10-30 06:52] VITALS: TEMP 98.1
[2024-10-30 06:57] VITALS: O2SAT 99
[2024-10-30 06:59] VITALS: BP 169/81
== END 2024-10-30 03:25 | disposition home or self-care (01) ==
LOC: ER 22:24
DX: I10 Essential (primary) hypertension (principal); R00.1 Bradycardia, unspecified; R06.00 Dyspnea, unspecified; I48.91 Unspecified atrial fibrillation
CPT/HCPCS: 93005; 85025; 80048; 36415; 83735; 85610; 80076; 81003; 84484; 83880; 80307; 71045; J7040